=== PATIENT | female | born 1950 | race Caucasian/White ===

== ENCOUNTER → 2016-10-02 | Outpatient (CLI) | payer BC, MEDICARE ==
[2016-10-02 14:53] LABS: Blood Urea Nitrogen 18 mg/dL (7-17); Non-African American GFR(MDRD) >60 (>60 ml/min/1.73 sqM)
== END | disposition home or self-care (01) ==
LOC: LABWHC1 14:18
PROVIDERS: ATTEND Physical Medicine & Rehabilitation
DX: Z01.812 Encounter for preprocedural laboratory examination (principal); M96.1 Postlaminectomy syndrome, not elsewhere classified; M51.26 Other intervertebral disc displacement, lumbar region; M51.16 Intervertebral disc disorders with radiculopathy, lumbar region; M54.5 Low back pain; R20.2 Paresthesia of skin
CPT/HCPCS: 36415; 82565; 84520

== ENCOUNTER → 2016-11-11 | Outpatient (CLI) | payer BC, MEDICARE ==
[2016-11-11 14:33] LABS: Basophils # (A) 0.1 k/uL (0-0.2); Basophils % (A) 2 %; CH 33.3; Eosinophils # (A) 0.1 k/uL (0-0.7); Eosinophils % (A) 2 %; HCT 41.6 % (34.0-46.0); HDW 2.44; HGB 14.4 gm/dL (11.4-16.0); Luc # (Auto) 0.22; Luc % (Auto) 4; Lymphocytes # (A) 2.1 k/uL (1.0-4.8); Lymphocytes % (A) 36 %; MCH 34.1 pg (25.0-35.0); MCHC 34.6 g/dL (31.0-37.0); MCV 98.5 fL (80.0-100.0); Mean Platelet Volume 7.9; Monocytes # (A) 0.4 k/uL (0-1.0); Monocytes % (A) 7 %; Neutrophils # (A) 2.9 k/uL (1.3-7.7); Neutrophils % (A) 50 %; RBC 4.22 m/uL (3.80-5.40); RDW 12.6 % (11.5-15.5); WBC 5.9 k/uL (3.8-10.6); WBC (Perox) 6.07
[2016-11-11 14:42] LABS: Partial Thromboplastin Time 24.8 sec (22.0-30.0); Prothrombin Time 10.2 sec (9.0-12.0)
[2016-11-11 15:25] LABS: ALT 31 U/L (9-52); AST 24 U/L (14-36); Alkaline Phosphatase 65 U/L (38-126); Anion Gap 9 mmol/L; Blood Urea Nitrogen 15 mg/dL (7-17); Calcium 9.1 mg/dL (8.4-10.2); Carbon Dioxide 26 mmol/L (22-30); Chloride 102 mmol/L (98-107); Glucose 86 mg/dL (74-99); Non-African American GFR(MDRD) >60 (>60 ml/min/1.73 sqM); Potassium 4.2 mmol/L (3.5-5.1); Sodium 137 mmol/L (137-145); Total Bilirubin 0.5 mg/dL (0.2-1.3); Total Protein 6.4 g/dL (6.3-8.2)
--- NOTE | 2016-11-11 15:39 | XR ---
EXAMINATION TYPE: XR chest 2V DATE OF EXAM: 11/11/2016 2:54 PM COMPARISON: NONE TECHNIQUE: PA and lateral views submitted. HISTORY: Presurgical FINDINGS: The lungs are clear and there is no pneumothorax, pleural effusion, or focal pneumonia. Hypertrophi c change of the spine noted. Atherosclerotic change aorta. IMPRESSION: 1. No acute process.
== END | disposition home or self-care (01) ==
LOC: LABPAT 13:55
PROVIDERS: ATTEND Orthopaedic Surgery Orthopaedic Surgery of the Spine
DX: Z01.818 Encounter for other preprocedural examination (principal); Z01.812 Encounter for preprocedural laboratory examination
CPT/HCPCS: 71020; 80053; 85025; 85610; 85730; 86850; 86900; 86901; 87070

== ENCOUNTER 2016-11-19 09:00 | Inpatient (IN) | payer BC, MEDICARE ==
[2016-11-17 15:16] VITALS: BMI 25.0
[~2016-11-19 09:00] MED LIST: BACITRACIN 50,000 UNIT, POLYMYXIN B 500,000 UNIT in SODIUM CHLORIDE 0.9% IRRIGATIO 1,00... IRRIGATION ONE; LIDOCAINE 1% 20 ML VIAL (10MG/ML) FOR IV START INTRADERMA PRN; ONDANSETRON 4 MG/2 ML VIAL IVP ONE; ceFAZolin 2 GM in SODIUM CHLORIDE 0.9% 100 ML IVPB ONE
[2016-11-19] MEDS: LACTATED RINGERS 1,000 ML IV SCH (12:17)
[2016-11-19] MEDS ORDERED: MIDAZOLAM 2 MG/2 ML VIAL IV ONE (12:36)
[2016-11-19] MEDS: fentaNYL (PF) 50 MCG/ML 2 ML AMP IV ONE ×2 (13:20→13:52)
[2016-11-19] MEDS ORDERED: NEOSTIGMINE 1 MG/ML 10 ML VIAL ONE (14:53)
[2016-11-19] MEDS ORDERED: PROPOFOL 10 MG/ML 20 ML VIAL IV ONE (14:53)
[2016-11-19] MEDS ORDERED: MIDAZOLAM 2 MG/2 ML VIAL ONE (14:53)
[2016-11-19] MEDS ORDERED: GLYCOPYRROLATE 0.2 MG/ML 2 ML VIAL ONE (14:53)
[2016-11-19] MEDS ORDERED: SUCCINYLCHOLINE CHLORIDE 100 MG/5 ML SYR IV ONE (14:53)
[2016-11-19] MEDS ORDERED: SODIUM CHLORIDE 0.9% IRRIG 1,000 ML BTL IRRIGATION ONE (14:53)
[2016-11-19] MEDS ORDERED: fentaNYL (PF) 50 MCG/ML 2 ML AMP ONE (14:53)
[2016-11-19] MEDS ORDERED: HYDROmorphone (PF) 1 MG/ML ONE (14:53)
[2016-11-19] MEDS ORDERED: ROCURONIUM BROMIDE 10 MG/ML 10 ML VIAL IV ONE (14:53)
[2016-11-19] MEDS ORDERED: LIDOCAINE 1% INJ 10MG/ML (20 ML MDV) ONE (14:53)
[2016-11-19] MEDS ORDERED: PHENYLEPHRINE-0.9% NACL SYG 1 MG/10 ML SYRINGE ONE (14:53)
[2016-11-19] MEDS ORDERED: HEPARIN SODIUM,PORCINE 10,000 UNIT/ML 1 ML VIAL ONE (14:53)
[2016-11-19] MEDS ORDERED: LIDOCAINE 0.5%-EPI 1:200,000 50 ML VIAL SQ ONE ×2 (15:29→15:59)
[2016-11-19] MEDS ORDERED: GELATIN SPONGE,ABSORB (LARGE) 1 EACH SPONGE TOPICAL ONE (15:58)
[2016-11-19] MEDS ORDERED: BUPIVACAINE (PF) 0.25% 30 ML VIAL SQ ONE ×2 (16:00→17:14)
[2016-11-19] MEDS ORDERED: THROMBIN (BOVINE) 5,000 UNIT VIAL MISCELLANE ONE ×2 (16:00)
[2016-11-19] MEDS: BACITRACIN 50,000 UNIT, POLYMYXIN B 500,000 UNIT in SODIUM CHLORIDE 0.9% IRRIGATIO 1,00... IRRIGATION ONE ×2 (16:02→18:31)
--- NOTE | 2016-11-19 16:16 | XR ---
Limited lumbar spine HISTORY: Needle placement Correlation to lumbar MRI 19 April 2015 Single lateral view from an intraoperative exam is submitted. There is a metallic probe superimposed over the fourth lumbar vertebral body, prior fusion has been performed at S1-L4, posterior facet scre ws are also present at L5 and S1. IMPRESSION: Orthopedic localization.
[2016-11-19] MEDS ORDERED: LACTATED RINGERS 1,000 ML IV ONE ×3 (16:32→18:32)
--- NOTE | 2016-11-19 17:33 | XR ---
EXAMINATION TYPE: XR lumbar spine 2 or 3V DATE OF EXAM: 11/19/2016 5:14 PM COMPARISON: November 19, 2016 3:49 PM digital radiograph HISTORY: Same-day surgical fusion procedure TECHNIQUE: 3 views obtained at 5:00 PM FINDINGS: With a numbering schema corresponding lowermost pedicle fixation screws being at the L4 lev el, there are bilateral pedicle fixation screws at the L3 and L4 levels. There is grade 1-2 spinal listhesis of L4 with respect to L5. Orthopedic hardware is intact. No unexpected radiopaque foreign bodies. IMPRESSION: Postoperative digital radiography.
[2016-11-19] MEDS ORDERED: HYDROcodone/APAP 5-325MG 1 EACH TAB PO PRN (17:38)
[2016-11-19] MEDS ORDERED: BENZOCAINE/MENTHOL LOZENG 1 EACH LOZENGE MUCOUS MEM PRN (17:38)
[2016-11-19] MEDS ORDERED: HYDROmorphone PCA 5 MG/25 ML SYRINGE IV PRN (17:38)
--- NOTE | 2016-11-19 17:38 | P.OP ---
Date of Procedure: 11/19/16 Preoperative Diagnosis: Spinal stenosis L3 4, degenerative disc disease L3 4 Low back pain with lower extremity radiculopathy History of prior fusion L4-S1 with retained hardware Postoperative Diagnosis: Same Anesthesia: GETA Pathology: none sent Condition: stable Disposition: PACU Description of Procedure: BRIEF OPERATIVE NOTE Preoperative Diagnosis: Spinal stenosis L3 4, severe, degenerative disc disease L3 4, low back pain with lower extremity radiculopathy, history of prior fusion L4-S1 with retained hardware Postoperative Diagnosis: Same with findings of solid fusion L4-S1 Procedure: Removal of hardware L4 5, deep from the bone Expiration of fusion L4 5 with findings solid fusion Laminectomy and decompression with wide bilateral foraminotomies L3 4 Posterior lateral decompression and fusion L3 4 Transforaminal lumbar interbody fusion for a 360 fusion L3 4 Discectomy for decompression L3 4 Placement of interbody graft Bone marrow aspirate through a separate fascial incision from the right iliac crest bone using a bone marrow aspiration device Local autogenous bone grafting Use of Cell Saver Use of bone graft extenders Use of neuro monitoring Surgeon: Dr. Webb Substance Abuse Nurse: Vern Ventura is present throughout the entire the case persistence during positioning, dissection, exposure, visualization, and all crucial elements of the case as well as closure. Anesthesia: General anesthesia Estimated blood loss: Approximately 150 mL Complications: None apparent Components implanted: K2M Mikado pedicle screw system with 4 screws measuring 6.5 x 45 mm, 2 rods, one Franklin interbody peek cage, one large osteoamp cancellus bone sponge and 10 mL of osteoamp cancellus bone chips to supplemental local autogenous bone graft and bone marrow aspirate Disposition: To recovery room in good stable condition. OPERATIVE INDICATIONS The patient has had long-standing issues in their lower back and lower extremities. She had undergone prior lumbar surgery in the past with fusion at L4 to S1. She had done fairly well with this but was developing increasing pain at her back and into her lower extremities. She is having worsening symptoms of found to have severe stenosis at L3 4 which correlated with a number of her symptoms at her back and her lower extremity radicular symptoms. The patient has been through conservative treatment. She was not having any lasting benefit despite aggressive conservative treatment. We discussed various treatment options including surgery, and the patient wishes to proceed with surgery We discussed the risk, patient's alternatives and benefits of surgery including but not limited to, risk of bleeding risk of infection, risk of need for further surgery, risk of decreased, loss of motion, muscle function , malunion nonunion, hardware failure, nerve damage, paralysis, heart attack, blindness and . OPERATIVE SUMMARY After discussing all the risks, patient alternatives and benefits at length, the patient elected to proceed with surgical intervention, signed informed consent, and presented for their procedure. The patient was seen and examined in the preoperative holding area and the surgical site was marked. The patient was given antibiotics and brought to the operating room. The patient was sedated and intubated by anesthesia in standard fashion. The patient was positioned on to the operating room table in a prone position on the appropriate frame which was well-padded and well molded. We were careful to pad any bony prominences and pressure points. We were careful to maintain the patient's cervical spine and good neutral alignment and position throughout. The patient was prepped and draped in a normal standard fashion. An appropriate timeout and keystone protocol performed. We were able to proceed with the surgery. The local wound area was infiltrated with local anesthetic. An incision was made at the midline longitudinally over the appropriate levels utilizing the prior incision site and extending it. Dissection was taken down subcutaneously to the level of the fascia which was split midline. Dissection was taken over the lamina bilaterally over the facet joints and to the transverse processes. Intraoperative x-ray was taken which showed a marker at the appropriate level at L4. With the appropriate level positively confirmed, we were able to proceed with placement of the pedicle holes and screws. I had removed the facet screws from L4 5 facet joints and to facilitate placement of my knee hardware. I was also removed them appropriately from the bones and there examined and found to be in total. I was able to explore the fusion at L4 5 and L5-S1 it appeared to be solidly fused with no evidence of any motion. The patient had all their twitches back. The wound was copiously irrigated and suctioned dry as had been done periodically throughout the case. Screw holes were established similarly at each level. A sharp awl was used to establish the starting hole. It was palpated and found to have good for qiu and good base. A monitored Steffee probe was used to establish the pedicle hole. It was positioned so there was no stimulation at 12 mA. The hole was palpated and found to have good for qiu and a good base. The hole was tapped with the appropriate sized tap. The transverse process or sacral ala was decorticated with a high-speed bur. I was able to use these holes to place the appropriate size screw and good alignment and good position with good bony purchase. I was able to avoid the transaxial screw at L4. When the screws were inserted there were stimulated, and found to have no stimulation at 20 mA. Through a separate fascial incision toward the right iliac crest I was able place a bone marrow aspirate device into the iliac crest into the cancellus aspect. I was able to withdraw bone marrow aspirate approximately 20 mL which was used to soak the ostial and sponge and cancellus chips for use later in the case. I was able to turn my attention to the decompression at L3 4. decompression was performed with a combination of rongeurs, curettes, Kerrison rongeurs and a ball -tip feeler. All of the bone that was removed was stripped and morcellized for use as autogenous bone graft later in the case. There is evidence of severe central and bilateral foraminal stenosis which was removed with a laminectomy and decompression and foraminotomy. I was able to obtain good central decompression as well as wide bilateral foraminal decompression. There is no evidence of dural tear or leak. Good hemostasis was maintained. The wound was irrigated and suctioned dry. I performed a complete facetectomy at the appropriate level on the most symptomatic side. All bone that was removed was saved for local autogenous bone grafting. I was able to gain access to the disc space at the appropriate level/levels. Good hemostasis was maintained. I was able to protect the neurologic structures. A discectomy was performed. This provided further decompression. I was also able to perform complete discectomy and endplate preparation with a combination of pituitary curettes, rasps and scrapers. With the interbody space prepared, I was able to do appropriate sizing. The appropriate size cage was chosen. The wound was irrigated and suctioned dry. The interbody space was packed with local autogenous bone graft and a small portion of bone graft substitute, as was the cage itself. I placed a peek cage at the interbody space of L3 4 appropriately. Protecting the soft tissue structures, I was able place the cage in good alignment and good position with good fit and fill. There is no evidence of extrusion of the graft material nor protrusion of the interbody device. The wound was irrigated and suctioned dry. With the hardware intact at L3 4, intraoperative x-ray was again taken which showed good alignment and position of the hardware at the appropriate levels at L3 4. We were then able to measure, contour and place the rods and appropriate hardware bilaterally. I was able to place capcrews, tighten them down, and shear them off appropriately. The sheared portion was counted and accounted for. With this intact I was able to place the local autogenous bone graft with additional bone graft enhancer as necessary into the posterior lateral gutters bilaterally. With the bone graft intact, a stable construct, and good decompression at the appropriate levels, we were able to proceed with closure. Good hemostasis was maintained. There is no evidence of dural tear or leak. The fascia was closed for a watertight closure. The subcutaneous tissue was closed over a superficial drain. The subcuticular tissue was closed with absorbable suture. The wound was cleaned and dried and dressed with the appropriate dressing. The drapes were broken down. The patient was gently rolled back onto their hospital bed being careful to maintain their cervical spine and good neutral alignment and position. They were woken up by anesthesia , extubated, and brought to the recovery room in good stable condition. The patient will be admitted to the hospital for appropriate postoperative care , medical management and monitoring. We will continue to follow them closely about the postoperative course.
[2016-11-19] MEDS ORDERED: ZOLPIDEM 10 MG TAB PO PRN (17:41)
[2016-11-19] MEDS ORDERED: HYDROcodone/APAP 10-325MG 1 EACH TAB PO PRN (17:41)
[2016-11-19] MEDS: HYDROmorphone 1 MG/ML 1 ML SYRINGE IVP PRN ×6 (17:42→22:58)
[2016-11-19] MEDS ORDERED: HYDROmorphone 1 MG/ML 1 ML SYRINGE IVP PRN (17:50)
[2016-11-19] MEDS ORDERED: fentaNYL (PF) 50 MCG/ML 2 ML AMP IV ONE (18:15)
[2016-11-19] MEDS: HYDROmorphone PCA 5 MG/25 ML SYRINGE IV PRN (18:46)
[2016-11-19] MEDS: HYDROcodone/APAP 5-325MG 1 EACH TAB PO PRN ×2 (19:49→22:58)
[2016-11-19] MEDS: SODIUM CHLORIDE 0.9% 1,000 ML IV SCH (23:48)
[2016-11-19] MEDS: ceFAZolin 2 GM in SODIUM CHLORIDE 0.9% 100 ML IVPB SCH (23:51)
[2016-11-20] MEDS: HYDROcodone/APAP 5-325MG 1 EACH TAB PO PRN ×3 (02:35→18:25)
[2016-11-20] MEDS: HYDROmorphone 1 MG/ML 1 ML SYRINGE IVP PRN ×6 (03:22→23:58)
[2016-11-20 09:09] LABS: Anion Gap 9 mmol/L; Blood Urea Nitrogen 9 mg/dL (7-17); Calcium 8.9 mg/dL (8.4-10.2); Carbon Dioxide 26 mmol/L (22-30); Chloride 103 mmol/L (98-107); Glucose 122 mg/dL (74-99); Non-African American GFR(MDRD) >60 (>60 ml/min/1.73 sqM); Potassium 4.2 mmol/L (3.5-5.1); Sodium 138 mmol/L (137-145)
[2016-11-20] MEDS: ceFAZolin 2 GM in SODIUM CHLORIDE 0.9% 100 ML IVPB SCH (09:15)
[2016-11-20] MEDS: HYDROmorphone PCA 5 MG/25 ML SYRINGE IV PRN ×2 (09:15→21:23)
[2016-11-20 09:16] LABS: Basophils # (A) 0.1 k/uL (0-0.2); Basophils % (A) 1 %; CH 33.7; CHCM 32.9; Eosinophils % (A) 0 %; HCT 37.7 % (34.0-46.0); HGB 12.1 gm/dL (11.4-16.0); Luc # (Auto) 0.11; Luc % (Auto) 1; Lymphocytes # (A) 0.7 k/uL (1.0-4.8); Lymphocytes % (A) 6 %; MCH 33.1 pg (25.0-35.0); MCHC 32.1 g/dL (31.0-37.0); MCV 103.1 fL (80.0-100.0); Macrocytosis Slight; Mean Platelet Volume 8.9; Monocytes # (A) 0.5 k/uL (0-1.0); Monocytes % (A) 5 %; Neutrophils # (A) 9.3 k/uL (1.3-7.7); Neutrophils % (A) 87 %; RBC 3.65 m/uL (3.80-5.40); RDW 13.1 % (11.5-15.5); WBC 10.7 k/uL (3.8-10.6); WBC (Perox) 10.84
[2016-11-20] MEDS: LISINOPRIL 2.5 MG TAB PO SCH (10:28)
[2016-11-20] MEDS: TRIAMTERENE-HCTZ 37.5-25MG 1 EACH TAB PO SCH (10:28)
[2016-11-20] MEDS: LACTATED RINGERS 1,000 ML IV SCH (10:33)
--- NOTE | 2016-11-20 11:31 | P.PN ---
Progress Note - Text Postoperative day #1 Patient is seen and examined today at bedside. The patient has some pain around the surgical site as expected. Pain is being controlled with medication. She is up in a chair and she says she feels good. She has troubles with changing positions as expected. Physical Exam Afebrile with stable vital signs Abdomen is soft nontender. Chest has good excursion deep and space expiration The incision site is clean dry and intact. No erythema there is no purulence. Her dressing is intact there is no evidence of any infection at her back. Extremities have not had neurologic change from prior to surgery. She has sustained dorsal flexion plantar flexion and extensor hallucis longus intact Calves and thighs were soft nontender without evidence of DVT. Assessment/Plan Postoperative day #1 status post decompression and fusion L3 4 with extension of her prior fusion from L4-S1 for her severe spinal stenosis L3 4. Patient is progressing as expected from the surgery. She seems to be making appropriate progress and we will increase her mobility. She will need her Vergraa catheter disc continued today. We will continue to increase the patient's mobilization with therapy. We will continue pain control with oral or IV medications. We'll continue to follow patient closely.
--- NOTE | 2016-11-20 14:45 | P.CONS ---
History of Present Illness - Reason for Consult Consult date: 11/20/16 Medical management Requesting physician: Kaleigh Webb - Chief Complaint Low back pain with lower extremity radiculopathy - History of Present Illness Patient is a 66-year-old female, patient of Dr. Wilson in the outpatient setting, with past medical history detailed below significant for spinal stenosis, degenerative disc disease, low back pain with lower extremity radicular Pappy, and history of prior L4-S1 fusion with retained hardware. Patient presented to the hospital for elective decompression and fusion of L3 4 with extension of prior fusion from L4-S1 for her severe spinal stenosis of L3 4. Patient is evaluated on the surgical floor she is postop day #1. Patient is sitting up in a chair. Patient is feeling well. Denies chills, fevers, nausea, vomiting, shortness of breath, chest pain, or abdominal pain. Incisional pain controlled with current pain regimen. Patient reports slight numbness to her bilateral feet which is chronic per patient Patient has a Vergara catheter with adequate urine output. Patient is tolerating a regular diet. Afebrile. WBC 10.7. Hemoglobin 12.1. Past Medical History Past Medical History: Hypertension, Osteoarthritis (OA) History of Any Multi-Drug Resistant Organisms: None Reported Past Surgical History: Back Surgery, Hysterectomy Past Anesthesia/Blood Transfusion Reactions: No Reported Reaction Past Psychological History: No Psychological Hx Reported Smoking Status: Former smoker Past Alcohol Use History: Daily Additional Past Alcohol Use History / Comment(s): quit smoking 20 yrs. ago, smoked for 15 yrs., glass wine per day Past Drug Use History: None Reported - Past Family History Father Family Medical History: Cancer Medications and Allergies Home Medications Medication Instructions Recorded Confirmed Type HYDROcodone/APAP 10-325MG [[place] 1 tab PO Q6H PRN 11/17/16 11/19/16 History 10-325] Lisinopril [Zestril] 2.5 mg PO DAILY 11/17/16 11/19/16 History Multivitamin [Multivitamins Adult 1 tab PO DAILY 11/17/16 11/19/16 History Gummies] Triamterene-Hctz 37.5-25Mg 1 tab PO DAILY 11/17/16 11/19/16 History [Maxzide 37.5-25] Zolpidem [Ambien] 10 mg PO HS PRN 11/17/16 11/19/16 History Allergies Allergy/AdvReac Type Severity Reaction Status Date / Time codeine AdvReac Nausea & Verified 11/19/16 12:10 Vomiting Physical Exam Vitals: Vital Signs Temp Pulse Resp BP Pulse Ox 11/20/16 08:14 97.1 F L 68 16 103/55 97 11/20/16 04:00 97.3 F L 54 L 18 118/55 92 L 11/19/16 20:30 75 118/75 11/19/16 20:15 61 127/60 11/19/16 20:00 59 L 153/90 11/19/16 19:45 61 146/79 11/19/16 19:30 57 L 139/64 11/19/16 19:25 97 F L 82 16 152/82 100 11/19/16 19:15 58 L 149/61 11/19/16 19:00 53 L 151/70 11/19/16 18:45 143/91 11/19/16 18:21 63 16 157/71 100 11/19/16 18:16 60 16 170/71 100 11/19/16 18:00 63 14 170/74 100 11/19/16 17:45 67 16 161/73 95 11/19/16 17:35 97.6 F 80 16 153/69 96 Intake and Output 11/19/16 11/20/16 11/20/16 22:59 06:59 14:59 Intake Total 2101 625 360 Output Total 225 1000 1500 Balance 1876 375 1140 Intake: IV 2101 Intake, IV Titration 375 Amount Sodium Chloride 0.9% 1, 375 000 ml @ 75 mls/hr IV . [id number] [facility] Rx#:[id number] Oral 250 360 Output: Urine 125 1000 1500 Uretheral (Vergara) 1500 Estimated Blood Loss 100 Other: Voiding Method Indwelling Catheter Indwelling Catheter Weight 62.142 kg Patient Weight 11/21/16 06:59 Weight 62.142 kg GENERAL: Pt awake and alert, well-appearing, well-nourished, and in no acute distress. HEAD: Atraumatic, normocephalic. EYES: Pupils equal and round. Sclera anicteric, conjunctiva are normal. ENT: Moist mucous membranes. NECK:Normal range of motion, supple without lymphadenopathy or JVD. Thyroid midline, small and firm without palpable masses. LUNGS: Breath sounds clear to auscultation bilaterally. No wheezes, rales, or rhonchi. HEART: Heart S1, S2, no S3 or S4. Regular rate and rhythm. No murmurs, rubs or gallops. ABDOMEN: Soft, nontender, nondistended, normoactive bowel sounds. No guarding, no rebound. No masses or organomegaly appreciated. EXTREMITIES: Palpable peripheral pulses. No edema. No calf tenderness. NEUROLOGICAL: Pt oriented x 3. No focal deficits noted. Strength and sensation grossly intact. PSYCH: Normal mood, normal affect. SKIN: Warm, dry. Surgical dressing dry and intact. Results CBC & Chem 7: 11/20/16 08:03 11/20/16 08:06 Labs: Abnormal Lab Results - Last 24 Hours (Table) 11/20/16 11/20/16 Range/Units 08:03 08:06 WBC 10.7 H (3.8-10.6) k/uL RBC 3.65 L (3.80-5.40) m/uL MCV 103.1 H (80.0-100.0) fL Neutrophils # 9.3 H (1.3-7.7) k/uL Lymphocytes # 0.7 L (1.0-4.8) k/uL Glucose 122 H (74-99) mg/dL Assessment and Plan Plan: Impression and plan: 1. Status post decompression and fusion L3 4 with extension of prior fusion from L4-S1 for severe spinal stenosis L3 4. 2. Leukocytosis, suspect reactive. 3. History of low back pain with lower extremity radiculopathy. 4. Hypertension. 5. Osteoarthritis. 6. History of nicotine dependence. Continue to monitor patient. Continue surgical management by surgical team. Home medications have been reviewed and resumed. Continue GI and DVT prophylaxis. Continue supportive treatment and pain management. Continue incentive spirometer 10 times an hour while awake. Repeat CBC and BMP in a.m. The above impression and plan have been discussed and directed by Dr. Basilio. Alyse MENDOZA acting as scribe for Dr. Basilio.
[2016-11-20] MEDS: DIAZEPAM 5 MG TAB PO PRN (15:50)
[2016-11-20] MEDS: MULTIVITAMINS, THERA 1 EACH TAB PO SCH (15:53)
[2016-11-20] MEDS ORDERED: CALCIUM CARBONATE 500 MG CHEWABLE PO PRN (17:45)
[2016-11-20] MEDS ORDERED: HEPARIN SODIUM,PORCINE 5,000 UNIT/ML 1 ML VIAL SQ SCH (21:00)
[2016-11-21] MEDS: SODIUM CHLORIDE 0.9% 1,000 ML IV SCH ×2 (00:21→03:59)
[2016-11-21 01:53] VITALS: RESP 16
[2016-11-21] MEDS: ONDANSETRON 4 MG/2 ML VIAL IVP PRN ×2 (04:08→11:49)
[2016-11-21] MEDS ORDERED: ONDANSETRON 4 MG/2 ML VIAL IVP STA (06:14)
[2016-11-21] MEDS: oxyCODONE-APAP 5-325MG 1 EACH TAB PO PRN ×5 (06:27→22:54)
[2016-11-21 07:19] LABS: Basophils % (A) 0 %; CH 33.4; CHCM 32.9; Eosinophils % (A) 0 %; HCT 36.2 % (34.0-46.0); HDW 2.25; Luc # (Auto) 0.13; Luc % (Auto) 1; Lymphocytes # (A) 0.7 k/uL (1.0-4.8); Lymphocytes % (A) 7 %; MCH 33.7 pg (25.0-35.0); Macrocytosis Slight; Mean Platelet Volume 7.9; Monocytes # (A) 0.6 k/uL (0-1.0); Monocytes % (A) 6 %; Neutrophils # (A) 8.4 k/uL (1.3-7.7); Neutrophils % (A) 85 %; RBC 3.55 m/uL (3.80-5.40); WBC 9.8 k/uL (3.8-10.6); WBC (Perox) 10.27
[2016-11-21 07:31] LABS: Anion Gap 7 mmol/L; Blood Urea Nitrogen 11 mg/dL (7-17); Calcium 9.7 mg/dL (8.4-10.2); Carbon Dioxide 28 mmol/L (22-30); Chloride 101 mmol/L (98-107); Glucose 123 mg/dL (74-99); Non-African American GFR(MDRD) >60 (>60 ml/min/1.73 sqM); Potassium 3.8 mmol/L (3.5-5.1); Sodium 136 mmol/L (137-145)
[2016-11-21] MEDS: TRIAMTERENE-HCTZ 37.5-25MG 1 EACH TAB PO SCH (07:55)
[2016-11-21] MEDS: FAMOTIDINE 20 MG TAB PO SCH (07:55)
[2016-11-21] MEDS: LISINOPRIL 2.5 MG TAB PO SCH (07:55)
[2016-11-21] MEDS: MULTIVITAMINS, THERA 1 EACH TAB PO SCH (07:55)
--- NOTE | 2016-11-21 08:44 | P.PN ---
Progress Note - Text Orthopedic Spine Patient is a pleasant 66-year-old female who is seen and examined at the bedside following removal of hardware L4-5 with posterior lateral decompression and fusion at L3-4 Thursday. Patient states they are doing ok postsurgically. She is not currently experiencing any significant pain in the bilateral lower extremities. She has continued to have significant pain at the surgical site of the lumbar spine. She states her back pain is exacerbated by trying to sit and move. When she is able to get upright she has been able to do some ambulation. Her pain is being controlled Percocet. She is no longer using a [employer]. Currently does not complain of nausea, vomiting, fever, or chills. Patient is eating and voiding freely without difficulty. Physical Exam Lumbar Fusion: Status post surgical day number 2 Patient is awake, alert, and oriented 3 Vital signs stable Good chest excursion with deep inspiration and expiration Abdomen soft nontender Dorsiflexion, plantarflexion, and extensor hallucis longus positive sustained bilaterally No signs or symptoms of DVT; no calf pain; pneumatic cuffs intact bilateral lower extremities Dressing is clean, dry, and intact; no erythema, purulence, or signs of infection Hemovac drain well secure Neurovascularly intact bilaterally lower extremities Assessment: Removal of hardware L4-5 Posterior lateral decompression and fusion L3-4 Transforaminal lumbar interbody fusion L3-4 Low back pain Arthrodesis status Plan: 1. Ambulate as tolerated; work with Physical Therapy to increase mobilization 2. Continue pain control with IV and oral medications 3. Dressing changed to Telfa and Tegaderm; Hemovac drain discontinued 4. Medical management can continue to manage patient for patient's other medical issues 5. We will continue to follow the patient closely; if the patient continues to improve, we'll plan for discharge home tomorrow, 11/22/2016 6. Patient can follow-up with Vern Gary PA-C or Dr. Marcial Webb at [facility] in 2-3 weeks following discharge
[2016-11-21] MEDS: LACTATED RINGERS 1,000 ML IV SCH (09:12)
--- NOTE | 2016-11-21 13:18 | P.WNDSOAP ---
Subjective Patient is a 66-year-old female, patient of Dr. Wilson and I in the outpatient setting, with past medical history detailed below significant for spinal stenosis, degenerative disc disease, low back pain with lower extremity radicular Pappy, and history of prior L4-S1 fusion with retained hardware. Patient presented to the hospital for elective decompression and fusion of L3 4 with extension of prior fusion from L4-S1 for her severe spinal stenosis of L3 4. Patient is postop day 2, she is complaining of some nausea. She has not had a bowel movement today. Her ARBORIST pump is now discontinued favor Percocet. Objective - Vital Signs Vital signs: Vital Signs Temp 98.9 F 11/21/16 07:55 Pulse 90 11/21/16 07:55 Resp 16 11/21/16 07:55 BP 159/81 11/21/16 07:55 Pulse Ox 96 11/21/16 07:55 Intake & Output 11/20/16 11/21/16 11/21/16 18:59 06:59 18:59 Intake Total 360 250 Output Total 1800 Balance -1440 250 Weight 62.142 kg Intake: Oral 360 250 Output: Urine 1800 Uretheral (Vergara) 1500 Other: Voiding Method Indwelling Catheter Toilet # Voids 2 1 - Exam GENERAL: Pt awake and alert, well-appearing, well-nourished, and in no acute distress. NECK:Normal range of motion, supple without lymphadenopathy or JVD. Thyroid midline, small and firm without palpable masses. LUNGS: Breath sounds clear to auscultation bilaterally. No wheezes, rales, or rhonchi. HEART: Heart S1, S2, no S3 or S4. Regular rate and rhythm. No murmurs, rubs or gallops. ABDOMEN: Soft, nontender, nondistended, normoactive bowel sounds. No guarding, no rebound. No masses or organomegaly appreciated. EXTREMITIES: Palpable peripheral pulses. No edema. No calf tenderness. NEUROLOGICAL: Pt oriented x 3. No focal deficits noted. Strength and sensation grossly intact. PSYCH: Normal mood, normal affect. SKIN: Warm, dry. Surgical dressing dry and intact. - Labs CBC & Chem 7: 11/21/16 06:42 11/21/16 06:42 Labs: Abnormal Lab Results - Last 24 Hours (Table) 03/17/17 03/17/17 Range/Units 06:42 06:42 RBC 3.55 L (3.80-5.40) m/uL MCV 102.0 H (80.0-100.0) fL Neutrophils # 8.4 H (1.3-7.7) k/uL Lymphocytes # 0.7 L (1.0-4.8) k/uL Sodium 136 L (137-145) mmol/L Glucose 123 H (74-99) mg/dL Assessment and Plan Plan: Impression and plan: 1. Status post decompression and fusion L3 4 with extension of prior fusion from L4-S1 for severe spinal stenosis L3 4: Her pain is currently being controlled with Percocet. 2. Leukocytosis, suspect reactive.: Resolved 3. History of low back pain with lower extremity radiculopathy.: Stable 4. Hypertension: Elevated, most likely from pain, will monitor, continued Dyazide and lisinopril 5. Osteoarthritis: Controlled 6. History of nicotine dependence. 7. GI prophylaxis: To continue Pepcid. 8. DVT prophylaxis: She'll continue to ambulate frequently early, SCDs are available. We will add Jobst 9 constipation: We'll add Colace We will increase her lisinopril to 5 mg daily. We'll add Colace. She'll be reevaluated next 24 hours as needed
[2016-11-21] MEDS ORDERED: LISINOPRIL 5 MG TAB PO SCH (13:30)
[2016-11-21] MEDS ORDERED: LISINOPRIL 2.5 MG TAB PO ONE (13:30)
[2016-11-21] MEDS: DOCUSATE 100 MG CAP PO SCH ×2 (14:14→21:24)
[2016-11-21] MEDS: DIAZEPAM 5 MG TAB PO PRN (14:14)
[2016-11-22] MEDS: oxyCODONE-APAP 5-325MG 1 EACH TAB PO PRN ×3 (04:21→12:14)
[2016-11-22] MEDS: ONDANSETRON 4 MG/2 ML VIAL IVP PRN (04:28)
[2016-11-22 06:57] LABS: Basophils % (A) 0 %; CHCM 33.7; Eosinophils # (A) 0.1 k/uL (0-0.7); Eosinophils % (A) 1 %; HCT 34.9 % (34.0-46.0); HDW 2.31; HGB 11.5 gm/dL (11.4-16.0); Luc # (Auto) 0.18; Luc % (Auto) 2; Lymphocytes # (A) 0.8 k/uL (1.0-4.8); Lymphocytes % (A) 9 %; MCH 33.4 pg (25.0-35.0); MCHC 32.9 g/dL (31.0-37.0); MCV 101.3 fL (80.0-100.0); Macrocytosis Slight; Mean Platelet Volume 8.5; Monocytes # (A) 0.6 k/uL (0-1.0); Monocytes % (A) 7 %; Neutrophils # (A) 7.3 k/uL (1.3-7.7); Neutrophils % (A) 82 %; RBC 3.45 m/uL (3.80-5.40); RDW 12.9 % (11.5-15.5)
[2016-11-22] MEDS: DOCUSATE 100 MG CAP PO SCH (08:04)
[2016-11-22] MEDS: TRIAMTERENE-HCTZ 37.5-25MG 1 EACH TAB PO SCH (08:04)
[2016-11-22] MEDS: MULTIVITAMINS, THERA 1 EACH TAB PO SCH (08:04)
[2016-11-22] MEDS: FAMOTIDINE 20 MG TAB PO SCH (08:04)
[2016-11-22] MEDS ORDERED: LISINOPRIL 5 MG TAB PO SCH (09:00)
--- NOTE | 2016-11-22 11:48 | P.DS ---
Providers Date of admission: 11/19/16 11:39 Attending physician: Kaleigh Webb Consults: 11/19/16 17:38 Consult Physician Routine Consulting Provider: Sylvester Wilson Jr Consult Reason/Comments: Medical management Do you want consulting provider notified?: Yes Primary care physician: Stated None Hospital Course: The patient presented on the day of admission as per his operative note. She had significant adjacent level degeneration at L3 4 with stenosis and listhesis. She had. History of prior fusion at L4 to S1 and after failing conservative treatment she underwent decompression fusion L3 4 as per her operative note. Physical Exam The incision site is clean dry and intact. There is no erythema no drainage. There is no purulence no evidence of infection. The incision in her back looks to be healing well. She has a skin changes due to her excessive heat pack use which are stable. Abdomen soft and nontender. Chest has good excursion with deep inspiration and expiration. The patient has active and passive range of motion intact at the upper and lower extremities. There is no acute change in neurologic status. She is able to sit up and walk in her room independently with a walker. She has good strength lower extremity. Hospital Course Postoperative day #3 status post decompression and fusion L3 4 with history of prior fusion L4 to S1 for her spinal stenosis and degenerative disease. She is verbalizing nicely and is eager to try to go home today. The patient has been making good progress postoperatively. They have completed the prophylactic antibiotics without any signs or symptoms of infection. The patient has been able to advance their diet, and is tolerating diet adequately. The pain was initially controlled with IV medications and is now controlled appropriately with oral medications. The patient has been able to increase their mobilization. The patient has progressed appropriately. I think they are in good stable condition for discharge today. They will be sent home with appropriate prescriptions. I answered their questions to the best of my ability in a language that they can understand and they are agreeable with the plan. They will follow up as directed in approximately 2 weeks or sooner if she is having any problems. Patient Condition at Discharge: Good Plan - Discharge Summary New Discharge Prescriptions: oxyCODONE HCL/ACETAMINOPHEN [Percocet 5-325 mg] 1 tab PO Q6HR PRN #90 tab PRN Reason: Pain Discharge Medication List HYDROcodone/APAP 10-325MG [[place] 10-325] 1 tab PO Q6H PRN 11/17/16 [History] Lisinopril [Zestril] 2.5 mg PO DAILY 11/17/16 [History] Multivitamin [Multivitamins Adult Gummies] 1 tab PO DAILY 11/17/16 [History] Triamterene-Hctz 37.5-25Mg [Maxzide 37.5-25] 1 tab PO DAILY 11/17/16 [History] Zolpidem [Ambien] 10 mg PO HS PRN 11/17/16 [History] oxyCODONE HCL/ACETAMINOPHEN [Percocet 5-325 mg] 1 tab PO Q6HR PRN #90 tab [Rx] Follow up Appointment(s)/Referral(s): Vern Gary PAC [PHYSICIAN [employer]] - 2 Weeks (Patient may follow-up with Vern Gary PA-C or Dr. Marcial Webb at [facility] in 2-3 weeks following discharge. ) Activity/Diet/Wound Care/Special Instructions: 1. Patient may shower Tegaderm dressing intact. 2. Patient may remove Tegaderm dressing in 3 days and shower without a dressing at that time. 3. Patient should keep Steri-Strips intact and allow them to fall off naturally. 4. Patient should refrain from driving until at least after their first follow- up appointment in the office. 5. Patient should avoid excessive bending, twisting, and lifting; no lifting greater than 10 pounds 6. Do not soak in tub Discharge Disposition: HOME SELF-CARE
[2016-11-22 12:02] VITALS: BP 139/65; PULSE 88; TEMP 97.4
== END 2016-11-22 12:31 | disposition home or self-care (01) | DRG 460 ==
LOC: 2ORMAIN 11:39 → 3SUR 17:22
PROVIDERS: ADMIT Orthopaedic Surgery Orthopaedic Surgery of the Spine; ATTEND Orthopaedic Surgery Orthopaedic Surgery of the Spine
PROC: 0ST20ZZ Resection of Lumbar Vertebral Disc, Open Approach (ICD-10-PCS; 2016-11-19)
PROC: 0SP30AZ Removal of Interbody Fusion Device from Lumbosacral Joint, Open Approach (ICD-10-PCS; 2016-11-19)
PROC: 07DR3ZZ Extraction of Iliac Bone Marrow, Percutaneous Approach (ICD-10-PCS; 2016-11-19)
PROC: 0SG00A1 (ICD-10-PCS; principal; 2016-11-19 14:30)
DX: M48.06 Spinal stenosis, lumbar region (principal); I10 Essential (primary) hypertension; M51.16 Intervertebral disc disorders with radiculopathy, lumbar region; M19.90 Unspecified osteoarthritis, unspecified site; M47.816 Spondylosis without myelopathy or radiculopathy, lumbar region; M43.16 Spondylolisthesis, lumbar region; E78.5 Hyperlipidemia, unspecified; Z87.891 Personal history of nicotine dependence; Z98.1 Arthrodesis status; Z79.899 Other long term (current) drug therapy; Z88.5 Allergy status to narcotic agent; Z82.49 Family history of ischemic heart disease and other diseases of the circulatory system
CPT/HCPCS: 72020; 72100; 80048; 85025; 86850; 86891; 86900; 86901

== ENCOUNTER → 2017-11-06 | Outpatient (CLI) | payer BC, MEDICARE ==
[2017-11-06 17:45] LABS: Basophils # (A) 0.1 k/uL (0-0.2); Basophils % (A) 1 %; Eosinophils # (A) 0.1 k/uL (0-0.7); Eosinophils % (A) 2 %; HCT 46.8 % (34.0-46.0); HGB 15.1 gm/dL (11.4-16.0); Lymphocytes # (A) 2.5 k/uL (1.0-4.8); Lymphocytes % (A) 28 %; MCH 32.2 pg (25.0-35.0); MCHC 32.4 g/dL (31.0-37.0); MCV 99.6 fL (80.0-100.0); Mean Platelet Volume 7.6; Monocytes # (A) 0.7 k/uL (0-1.0); Monocytes % (A) 8 %; Neutrophils # (A) 5.4 k/uL (1.3-7.7); Neutrophils % (A) 60 %; Platelet Count 298 k/uL (150-450); RBC 4.69 m/uL (3.80-5.40); RDW 12.7 % (11.5-15.5)
[2017-11-06 17:54] LABS: ALT 63 U/L (9-52); AST 53 U/L (14-36); Albumin 4.1 g/dL (3.5-5.0); Alkaline Phosphatase 59 U/L (38-126); Anion Gap 9 mmol/L; Blood Urea Nitrogen 14 mg/dL (7-17); Calcium 10.2 mg/dL (8.4-10.2); Carbon Dioxide 31 mmol/L (22-30); Chloride 99 mmol/L (98-107); Glucose 98 mg/dL (74-99); Potassium 4.3 mmol/L (3.5-5.1); Sodium 139 mmol/L (137-145); Total Bilirubin 0.4 mg/dL (0.2-1.3); Total Protein 6.9 g/dL (6.3-8.2)
--- NOTE | 2017-11-09 11:59 | MM ---
Reason for exam: screening (asymptomatic). Last mammogram was performed 1 year and 4 months ago. History: Patient is postmenopausal. Benign excisional biopsy of the left breast, 1979. Benign excisional biopsy of the right breast, 1979. Took estrogen for 10 years beginning at age 44. Physical Findings: A clinical breast exam by your physician is recommended on an annual basis and results should be correlated with mammographic findings. MG 3D Screening Mammo W/Cad Bilateral CC and MLO view(s) were taken. Prior study comparison: July 04, 2016, bilateral MG 3d screening mammo w/cad. June 29, 2015, right breast MG 3d work up w/cad RT. The breast tissue is heterogeneously dense. This may lower the sensitivity of mammography. Finding: There are typically benign diffuse/scattered calcifications in both breasts. There is a new 5mm mass in the central inner left breast at middle depth, 7cm from the nipple. Other bilateral masses and right upper inner quadrant focal asymmetry are stable from priors. No suspicious abnormality in the right breast. ASSESSMENT: Incomplete: need additional imaging evaluation, BI-RAD 0 RECOMMENDATION: Special view mammogram of the left breast. If lesion persists on supplemental views, image directed ultrasound is recommended. [facility] will attempt to contact patient to return for supplemental views and ultrasound if indicated.
== END | disposition home or self-care (01) ==
LOC: RADMAMWWP 16:30
PROVIDERS: ATTEND Family Medicine
DX: Z12.31 Encounter for screening mammogram for malignant neoplasm of breast (principal); Z00.00 Encounter for general adult medical examination without abnormal findings; I10 Essential (primary) hypertension
CPT/HCPCS: 36415; 77063; 77067; 80053; 84443; 85025; 86803

== ENCOUNTER → 2017-11-11 | Outpatient (CLI) | payer BC, MEDICARE ==
--- NOTE | 2017-11-12 08:29 | MM ---
Reason for exam: additional evaluation requested from abnormal screening. Last mammogram was performed less than 1 month ago. History: Patient is postmenopausal. Benign excisional biopsy of the left breast, 1979. Benign excisional biopsy of the right breast, 1979. Took estrogen for 10 years beginning at age 44. Physical Findings: Nurse did not find any significant physical abnormalities on exam. MG 3D Work Up W/Cad LT Spot compression CC, spot compression MLO, and ML view(s) were taken of the left breast. Prior study comparison: November 06, 2017, bilateral MG 3d screening mammo w/cad. July 04, 2016, bilateral MG 3d screening mammo w/cad. Finding: There is a 4 mm equal density (isodense), circumscribed round mass in the lower inner quadrant, middle position of the left breast. These results were verbally communicated with the patient and result sheet given to the patient on 11/11/17. ASSESSMENT: Incomplete: need additional imaging evaluation, BI-RAD 0 RECOMMENDATION: Ultrasound of the left breast.
--- NOTE | 2017-11-12 08:30 | USB ---
Reason for exam: additional evaluation requested from abnormal screening. History: Patient is postmenopausal. Benign excisional biopsy of the left breast, 1979. Benign excisional biopsy of the right breast, 1979. Took estrogen for 10 years beginning at age 44. US Breast Workup Limited LT Left breast ultrasound demonstrates a 3 x 2 x 3mm oval lesion too small to characterize at 8 o'clock and a 5 x 3 x 3mm oval, cystic lesion at 9 o'clock. These results were verbally communicated with the patient and result sheet given to the patient on 11/11/17. ASSESSMENT: Benign, BI-RAD 2 RECOMMENDATION: Return to routine screening mammogram schedule for both breasts.
== END | disposition home or self-care (01) ==
LOC: RADMAMWWP 12:50
PROVIDERS: ATTEND Family Medicine
DX: R92.8 Other abnormal and inconclusive findings on diagnostic imaging of breast (principal)
CPT/HCPCS: 77065; 76642; G0279

== ENCOUNTER → 2021-02-21 | Outpatient (CLI) | payer MEDICARE ==
--- NOTE | 2021-02-22 11:45 | MM ---
Reason for exam: screening (asymptomatic). Last mammogram was performed 3 years and 3 months ago. History: Patient is postmenopausal. Benign excisional biopsy of the left breast, 1979. Benign excisional biopsy of the right breast, 1979. Took hormonal contraceptives for 1 year. Took estrogen for 10 years beginning at age 44. Physical Findings: A clinical breast exam by your physician is recommended on an annual basis and results should be correlated with mammographic findings. MG Screening Mammo w CAD Bilateral CC and MLO view(s) were taken. Prior study comparison: November 06, 2017, bilateral MG 3d screening mammo w/cad. July 04, 2016, bilateral MG 3d screening mammo w/cad. No significant changes when compared with prior studies. ASSESSMENT: Benign, BI-RAD 2 RECOMMENDATION: Routine screening mammogram of both breasts in 1 year.
== END | disposition home or self-care (01) ==
LOC: RADMAMWWP 10:06
PROVIDERS: ATTEND Family Medicine
DX: Z12.31 Encounter for screening mammogram for malignant neoplasm of breast (principal); Z78.0 Asymptomatic menopausal state
CPT/HCPCS: 77067

== ENCOUNTER → 2022-04-23 | Outpatient (CLI) | payer MEDICARE ==
--- NOTE | 2022-04-23 19:00 | BD ---
EXAMINATION TYPE: Axial Bone Density DATE OF EXAM: 04/23/2022 CLINICAL HISTORY: 72 years year old Female. ICD-10 CODE: Z78.0 POST MENOPAUSAL WITHOUT HRT Height: 60 IN Weight: 142 LBS FRAX RISK QUESTIONS: History of Fracture in Adulthood: RT WRIST FX AGE 39 Secondary Osteoporosis: 3. Menopause before 45: TOTAL HYST AGE 39 RISK FACTORS HISTORY OF: History of Wrist Fracture: RT AGE 39 Surgery to Spine: AGE 49 L SPINE Active: YES Diet low in dairy products/other sources of calcium: YES Postmenopausal woman: TOTAL HYST AGE 39 Take estrogen and/or progesterone medications: NOT NOW How lon YEARS MEDICATIONS: Additional Medications: MAXIDE, LISINOPRIL EXAM MEASUREMENTS: Bone mineral densitometry was performed using the [employer] System. L SPINE SURGERY Bone mineral density about the R hip (g/cm2): 0.787 Bone mineral density about the L hip (g/cm2): 0.828 T Score values are as follows: -----R Neck: -1.8 -----L Neck: -1.5 -----R Total: -1.4 -----L Total: -1.4 Bone mineral density has: Decreased -0.5% since study of: 10/02/2006 FRAX%s: The graph provided illustrates a 11.8 chance for a major osteoporotic fx and a 2.4 chance for the hips probability for fx in 10 years time. IMPRESSION: Osteopenia (T Score between -2.5 and -1). There is slightly increased risk of fracture and the patient may be considered for treatment. Re-Screen 2-5 years. NOTE: T-SCORE=SD OF THE YOUNG ADULT MEAN.
[2022-04-23 22:46] LABS: Basophils # (A) 0.06 X 10*3/uL (0.00-0.10); Basophils % (A) 0.7 %; Eosinophils # (A) 0.09 X 10*3/uL (0.04-0.35); Eosinophils % (A) 1.1 %; HCT 43.1 % (37.2-46.3); HGB 14.3 g/dL (12.0-15.0); Immature Grans, Automated 0.5 %; Lymphocytes # (A) 2.45 X 10*3/uL (0.90-5.00); MCH 32.8 pg (27.0-32.0); MCHC 33.2 g/dL (32.0-37.0); MCV 98.9 fL (80.0-97.0); Mean Platelet Volume 10.9 fL (9.5-12.2); Monocytes # (A) 0.76 X 10*3/uL (0.20-1.00); Monocytes % (A) 9.3 %; NRBC Per 100 WBC 0 /100 WBCS (0.0-0.0); Neutrophils # (A) 4.78 X 10*3/uL (1.80-7.70); Neutrophils % (A) 58.4 %; Platelet Count 307 X 10*3/uL (140-440); RBC 4.36 X 10*6/uL (4.10-5.20); RDW 12.3 % (11.5-14.5); WBC 8.18 X 10*3/uL (4.50-10.00)
[2022-04-24 01:46] LABS: Hepatitis C IgG Antibody Nonreactive (Nonreactive)
[2022-04-24 01:48] LABS: ALT 18 U/L (8-44); AST 22 U/L (13-35); African American GFR (CKD) 84.8 (60.0-200.0); Albumin 4.2 g/dL (3.8-4.9); Alkaline Phosphatase 56 U/L (41-126); BUN/Creat Ratio 18.25 Ratio (12.00-20.00); Blood Urea Nitrogen 14.6 mg/dL (9.0-27.0); Calcium 9.6 mg/dL (8.7-10.3); Carbon Dioxide 26.1 mmol/L (20.0-27.5); Chloride 96 mmol/L (96-109); Chol/HDL Ratio 3.78 Ratio; Globulin 2.1 g/dL (1.6-3.3); Glucose 87 mg/dL (70-110); LDL Cholesterol,Calculated 126.5 mg/dL (0.0-131.0); Non-African American GFR(CKD) 73.1 (60.0-200.0); Sodium 133 mmol/L (135-145); Total Protein 6.3 g/dL (6.2-8.2)
--- NOTE | 2022-04-24 09:24 | XR ---
EXAM TYPE: LUMBAR SPINE X RAY SERIES COMPARISON: NONE HISTORY: Pain TECHNIQUE: 3 views are submitted. FINDINGS: Diffuse osteopenia with postsurgical changes. Grade 1 anterolisthesis L4 on L5. Hypertrophic and dege nerative changes at remaining levels. Vascular calcifications noted. New postsurgical change at L3-L4 relative to the prior exam appears in near-anatomic alignment. IMPRESSION: 1. Postsurgical change with grade 1 anterolisthesis of L4 on L5 stable prior exam.
--- NOTE | 2022-04-24 19:22 | MM ---
Reason for Exam: Screening (asymptomatic). Last mammogram was performed 1 year(s) and 2 month(s) ago. Patient History: Menarche at age 12. First Full-Term at age 24. Left ovary removed at age 44. Right ovary removed at age 44. Hysterectomy at age 44. Postmenopausal. Estrogen for 10 years from age 44 until age 54. Patient used Hormonal Contraceptives for 1 year. 1979, Benign Excisional Biopsy on the right side. 1979, Benign Excisional Biopsy on the left side. Risk Values: Geetha 5 year model risk: 2.9%. NCI Lifetime model risk: 7.1%. Prior Study Comparison: 11/06/2017 Bilateral Screening Mammogram, [facility]. 11/11/2017 Left Diagnostic Mammogram, [facility]. 02/21/2021 Bilateral Screening Mammogram, [facility]. Tissue Density: There are scattered fibroglandular densities. Findings: Analyzed By CAD. Chronic bilateral nodularity. However, nodular area of focal asymmetry 12:00 anterior right breast continues to gradually enlarged. Further evaluation recommended. Overall Assessment: Incomplete: need additional imaging evaluation, BI-RAD 0 Management: Special View Mammogram of the right breast. For the gradually enlarging focal asymmetry/mass anterior 12:00 right breast. Targeted right breast ultrasound if any persisting abnormality. Electronically signed and approved by: Brett Orta M.D. Radiologist
== END | disposition home or self-care (01) ==
LOC: RADMAMWWP 15:56
PROVIDERS: ATTEND Family Medicine
DX: Z12.31 Encounter for screening mammogram for malignant neoplasm of breast (principal); M85.88 Other specified disorders of bone density and structure, other site; Z78.0 Asymptomatic menopausal state
CPT/HCPCS: 72100; 77063; 77067; 77080; 80053; 80061; 84443; 85025; 86803; 87522

== ENCOUNTER → 2022-07-04 | Outpatient (CLI) | payer MEDICARE ==
--- NOTE | 2022-07-04 13:56 | MM ---
Reason for Exam: Additional evaluation requested from abnormal screening. Last screening mammogram was performed 2 month(s) ago. Patient History: Menarche at age 12. First Full-Term at age 24. Left ovary removed at age 44. Right ovary removed at age 44. Hysterectomy at age 44. Postmenopausal. Estrogen for 10 years from age 44 until age 54. Patient used Hormonal Contraceptives for 1 year. 1979, Benign Excisional Biopsy on the right side. 1979, Benign Excisional Biopsy on the left side. Risk Values: Geetha 5 year model risk: 2.9%. NCI Lifetime model risk: 7.1%. Tissue Density: Right: The breast tissue is heterogeneously dense. This may lower the sensitivity of mammography. Findings: Analyzed By CAD. 1.3 cm mass at the 12:00 position right breast 4 cm from the nipple. Additional evaluation with ultrasound is advised. Overall Assessment: Incomplete: need additional imaging evaluation, BI-RAD 0 Management: Diagnostic Breast Ultrasound of the right breast. A clinical breast exam by your physician is recommended on an annual basis and results should be correlated with mammographic findings. This exam should not preclude additional follow-up of suspicious palpable abnormalities. Results were given to the patient verbally at the time of exam. Electronically signed and approved by: Ayaz Cannon M.D. Radiologis
--- NOTE | 2022-07-04 14:14 | USB ---
Reason for Exam: Additional evaluation requested from abnormal screening. Patient History: Menarche at age 12. First Full-Term at age 24. Left ovary removed at age 44. Right ovary removed at age 44. Hysterectomy at age 44. Postmenopausal. Estrogen for 10 years from age 44 until age 54. Patient used Hormonal Contraceptives for 1 year. 1979, Benign Excisional Biopsy on the right side. 1979, Benign Excisional Biopsy on the left side. Risk Values: Geetha 5 year model risk: 2.9%. NCI Lifetime model risk: 7.1%. Technique: Method: Targeted. Prior Study Comparison: 11/11/2017 Left Diagnostic Mammogram, [facility]. 02/21/2021 Bilateral Screening Mammogram, [facility]. 04/23/2022 Bilateral MG 3D screening mammo w/cad, [facility]. Findings: The upper inner quadrant of the right breast, the axilla of the right breast and the retroareolar of the right breast were scanned. There is a mass approximately 5 cm from the nipple at the 12:00 position right breast which measures 1.0 x 0.8 x 1.0 cm. Tissue diagnosis is recommended. Right axilla is free of adenopathy or additional mass.. Overall Assessment: Suspicious, BI-RAD 4 Management: Ultrasound Core Biopsy of the right breast. A clinical breast exam by your physician is recommended on an annual basis and results should be correlated with mammographic findings. This exam should not preclude additional follow-up of suspicious palpable abnormalities. Results were given to the patient verbally at the time of exam. Electronically signed and approved by: Ayaz Cannon M.D. Radiologis
== END | disposition home or self-care (01) ==
LOC: RADMAMWWP 13:27
PROVIDERS: ATTEND Family Medicine
DX: R92.8 Other abnormal and inconclusive findings on diagnostic imaging of breast (principal); Z78.0 Asymptomatic menopausal state
CPT/HCPCS: 77065; 76642; G0279; 77061

== ENCOUNTER → 2022-07-14 | Day surgery (SDC) | payer MEDICARE | LOC: RADUSWWP 12:28 | PROVIDERS: ATTEND Surgery | DX: R92.8 Other abnormal and inconclusive findings on diagnostic imaging of breast (principal) | CPT/HCPCS: 88305; 77065; 19083; A4648 ==

== ENCOUNTER 2022-08-08 07:10 | Day surgery (SDC) | payer MEDICARE ==
[2022-08-05 14:32] VITALS: BMI 24.7
[~2022-08-08 07:10] MED LIST changes: +ACETAMINOPHEN TAB 500 MG TAB PO PRN; -BACITRACIN 50,000 UNIT, POLYMYXIN B 500,000 UNIT in SODIUM CHLORIDE 0.9% IRRIGATIO 1,00... IRRIGATION ONE; +DEXAMETHASONE SOD PHOSPHATE 4 MG/ML 1 ML VIAL IV ONE; +HEPARIN SODIUM,PORCINE/PF 5,000 UNIT/0.5 ML SYRINGE SQ PRN; -LIDOCAINE 1% 20 ML VIAL (10MG/ML) FOR IV START INTRADERMA PRN; +MIDAZOLAM 2 MG/2 ML VIAL IV PRN; +Pre Op ABX Message 1 EACH MISC MISCELLANE ONE; -ceFAZolin 2 GM in SODIUM CHLORIDE 0.9% 100 ML IVPB ONE; +fentaNYL (PF) 50 MCG/ML 2 ML AMP IV PRN
[2022-08-08] MEDS: LACTATED RINGERS 1,000 ML IV SCH ×2 (07:40→09:56)
[2022-08-08] MEDS ORDERED: ALPRAZolam 0.25 MG TAB ONE (07:41)
[2022-08-08] MEDS ORDERED: ACETAMINOPHEN TAB 500 MG TAB ONE (07:49)
[2022-08-08] MEDS ORDERED: LIDOCAINE 1% INJ 10MG/ML (30 ML VIAL-PF) SQ ONE (08:38)
[2022-08-08] MEDS ORDERED: fentaNYL (PF) 50 MCG/ML 2 ML AMP ONE (09:51)
[2022-08-08] MEDS ORDERED: MIDAZOLAM 2 MG/2 ML VIAL ONE (09:51)
[2022-08-08] MEDS ORDERED: KETOROLAC 15 MG/ML 1 ML VIAL ONE (09:51)
[2022-08-08] MEDS ORDERED: LIDOCAINE 2% INJ 20 MG/ML (2 ML VIAL) ONE (09:51)
[2022-08-08] MEDS ORDERED: PROPOFOL 10 MG/ML 20 ML VIAL IV ONE (09:51)
[2022-08-08] MEDS ORDERED: BUPIVACAINE (PF) 0.25% 30 ML VIAL SQ ONE ×2 (09:55→10:10)
[2022-08-08] MEDS ORDERED: SODIUM CHLORIDE 0.9% 50 ML with ceFAZolin 2,000 MG IV ONE ×2 (10:09)
[2022-08-08] MEDS ORDERED: HYDROcodone/APAP 5-325MG 1 EACH TAB PO PRN (10:43)
[2022-08-08] MEDS ORDERED: NALOXONE 0.4 MG/ML 1 ML VIAL IV PRN (10:43)
--- NOTE | 2022-08-08 10:45 | P.OP ---
Date of Procedure: 08/08/22 Procedure(s) Performed: PREOPERATIVE DIAGNOSIS: Abnormal right mammogram POSTOPERATIVE DIAGNOSIS: Same PROCEDURE: Right Breast wire localization biopsy SURGEON: Josiah EBL: Minimal ANESTHESIA: General plus local COMPLICATIONS: None OPERATIVE PROCEDURE: Patient was placed on the operating room table in the portillo pine position. The patient's right breast was prepped and draped in usual sterile fashion. A curvilinear incision was made adjacent to the areola. The breast tissue was dissected until the wire was identified superiorly. The wire was brought out through this incision. I followed the wire down into the breast tissue. The breast tissue around the anterior aspect of the wire was fully excised using electrocautery. The specimen was sent for specimen radiogram. The clip was present within the specimen. The subcutaneous tissues were inspected. No bleeding was seen. The subcutaneous tissues were closed using 3- 0 Vicryl sutures. The skin was closed using a running 4-0 Monocryl stitch. Skin glue and sterile dressings were applied. DISPOSITION: Stable to recovery room
[2022-08-08] MEDS ORDERED: HYDROmorphone 0.5 MG/0.5 ML SYRINGE IVP ONE ×3 (10:50→11:20)
[2022-08-08 11:13] VITALS: TEMP 97.6
[2022-08-08] MEDS ORDERED: HYDROcodone/APAP 10-325MG 1 EACH TAB ONE (11:41)
[2022-08-08] MEDS ORDERED: HYDROcodone/APAP 10-325MG 1 EACH TAB PO ONE ×2 (11:42→11:43)
[2022-08-08 12:04] VITALS: BP 96/52; PULSE 74; RESP 14
== END 2022-08-08 12:20 | disposition home or self-care (01) ==
LOC: OR 07:10
PROVIDERS: ATTEND Surgery
DX: R92.8 Other abnormal and inconclusive findings on diagnostic imaging of breast (principal); I10 Essential (primary) hypertension; Z87.891 Personal history of nicotine dependence; M19.90 Unspecified osteoarthritis, unspecified site; Z88.5 Allergy status to narcotic agent; Z98.1 Arthrodesis status; Z79.899 Other long term (current) drug therapy; Z98.890 Other specified postprocedural states
CPT/HCPCS: 19125; 76098; 19281; C1819; J2250; J1100; J2405; J0690; J2001 ×2; J3010; J1885; J2704; J1170; J1644; 88307

== ENCOUNTER → 2022-12-17 | Outpatient (CLI) | payer MEDICARE ==
[2022-12-17 14:02] VITALS: BP 125/74; PULSE 84; RESP 18; TEMP 97.9
--- NOTE | 2022-12-17 14:59 | P.PAINPG ---
PQRS Measure Charge Sheet Comment: HISTORY OF PRESENT ILLNESS: 72 yr old female w at side as a referral from Dr Basilio presents today w severe and chronic LBP secondary to postlaminectomy syndrome for evaluation. Pt states pain level is provoked at 6 /10 in intensity, constant, localized in the lower lumbar spine, achy, dull in character w shooting pain towards the BL feet. Pain is provoked by staying in 1 position for periods of 1 hr or more. Pain is alleviated by medications ([place], ASA from Dr Basilio), heat, PT 5 yrs ago which provoked pain, home guided stretching regimen, repositioning and rest. PMH: HTN, OA PSH: L4-L5 Decompression, L3-L4 Fusion, Hysterectomy, Tonsillectomy, Appendectomy SH: Former 15 pack/yr tobacco user, 1 glass wine per day, No illicit drug use FH: Fa- CA All: Codeine Meds: See list REVIEW OF ORGAN SYSTEMS: CONSTITUTIONAL: No fevers or chills. No recent weight loss. NEUROLOGICAL: + numbness and tingling along the distal extremities. No seizure disorders or headaches. MUSCULOSKELETAL: + pain PSYCHIATRIC: Denies current depression or suicidal thoughts. Physical Examinations : Constitutional : Cooperative , not in acute distress . Neurologic : Cranial nerve II to XII intact. No focal neurological deficits. Psychiatric : alert & oriented x 3. Matching mood & appropriate affect. Judgment & insight intact. Musculoskeletal : Cervical Spine Motor strength in the deltoid and biceps: Normal right side. Normal Left side Motor strength biceps and the wrist extensors: Normal right side . Normal left side Motor strength in the triceps muscle: Normal right side. Normal left side Deep tendon reflexes: Normal at the biceps. Normal at Brachioradialis. Normal at triceps Vertebral body tenderness to deep palpation over Cervical facet loading test: positive bilaterally Spurling test: positive bilaterally Neck distraction test: positive bilaterally Meaghan sign: positive bilaterally Lumbar spine Motor strength lower extremities ,thigh and legs 5/5 Right side , 5/5 Left side Deep tendon reflexes : Normal Knee Jerk. Normal Ankle Jerk Vertebral body tenderness over L5 Lumbar facet Loading Test: positive Right / positive Left Range of motion of the lumbar spine Flexion 30 degrees, extension 10 degrees Straight Leg Raise test: Left/ Right p ositive at degree Kaden test: positive right / positive left. Severe tenderness over the Sacroiliac joint on the Right / Left sides Gaenslen test: positive bilaterally Seated flexion test: positive bilaterally. Sacral spine : Severe tenderness over the Sacroiliac joint: right side / left side Range of motion: Flexion of the lumbar spine <60 degrees Range of motion: Extension of the lumbar spine <20 degrees Gaenslen's Test positive Celso's Test positive Kaden test: positive right side / left side Thigh Thrust Test Sacral Thrust Test Imaging: MRI with and without contrast of the lumbar spine from 04/19/15 reviewed Assessment/ Plan : Post laminectomy syndrome Recommendation of x ay of the lumbar spine re: M51.36 May need additional testing if indicated and may return to clinic within 2-4 wks for a re evaluation. All questions answered. I have spent greater than 30 minutes on patient care today. Dr Craven was available by phone for the evaluation of this patient. The time was used to review the medical records including relevant urine studies and Prescription history (MAPs), review of the available imaging, evaluation and examination of the patient, coordination of care with the medical staff and if applicable referring physicians, as well as creation of the medical record PQRS Narrative: Smoking Status Former smoker Home Medications: Ambulatory Orders HYDROcodone/APAP 10-325MG [[place] 10-325] 1 tab PO Q6H PRN 11/17/16 Triamterene-Hctz 37.5-25Mg [Maxzide 37.5-25] 1 tab PO DAILY 11/17/16 Zolpidem [Ambien] 10 mg PO HS PRN 11/17/16 lisinopriL [Zestril] 2.5 mg PO DAILY 11/17/16 Controlled Substance Measures - Controlled Substance Measures Is patient prescribed a controlled substance at discharge?: No
== END ==
LOC: PNWHC3 12:16
PROVIDERS: ATTEND Specialist
DX: M96.1 Postlaminectomy syndrome, not elsewhere classified (principal); I10 Essential (primary) hypertension; M19.90 Unspecified osteoarthritis, unspecified site; Z87.891 Personal history of nicotine dependence; Z88.5 Allergy status to narcotic agent; M47.816 Spondylosis without myelopathy or radiculopathy, lumbar region
CPT/HCPCS: 99211

== ENCOUNTER → 2022-12-17 | Outpatient (CLI) | payer MEDICARE ==
--- NOTE | 2022-12-17 13:48 | XR ---
EXAM TYPE: LUMBAR SPINE X RAY SERIES COMPARISON: 04/23/2022 HISTORY: Low back pain TECHNIQUE: 4 views are submitted. FINDINGS: Diffuse osteopenia with postsurgical changes. Grade 1 anterolisthesis L4 on L5. Hypertrophic and dege nerative changes at remaining levels. Vascular calcifications noted. New postsurgical change at L3-L4 relative to the prior exam appears in near-anatomic alignment. IMPRESSION: 1. Postsurgical change with grade 1 anterolisthesis of L4 on L5 stable prior exam.
== END | disposition home or self-care (01) ==
LOC: RADXRMAIN 13:12
PROVIDERS: ATTEND Physician Assistant Medical
DX: M43.16 Spondylolisthesis, lumbar region (principal); M51.36 Other intervertebral disc degeneration, lumbar region
CPT/HCPCS: 72100

== ENCOUNTER → 2022-12-20 | Outpatient (CLI) | payer MEDICARE ==
--- NOTE | 2022-12-22 08:14 | PE ---
EXAMINATION TYPE: PET CT fusion skull to thigh DATE OF EXAM: 12/20/2022 COMPARISON: Chest CT October 24, 2022 HISTORY: Solitary pulmonary nodule, recent abnormal CT TECHNIQUE: Following the intravenous administration of 11.74 mCi of F-18 FDG, whole body images are performed from the skull base to the midthigh. Images are reviewed on the computer in the coronal, a xial, and sagittal planes. Reconstructed rotating images are created on independent workstation and reviewed on the computer. A localization and attenuation correction CT is performed in conjunction with the PET scan. Blood glucose level equals 104. SCAN: Initial Scan FINDINGS: SKULL BASE AND NECK: No areas of abnormal hypermetabolic uptake. CHEST, MEDIASTINUM, AND HILAR REGION: Persistent bilateral pulmonary nodules. Lateral right upper lob e nodule redemonstrated measuring 1.5 x 1.6 cm axial image 79 with max SUV of 4.85. Just anterior and inferior to this there is stable 1.3 cm nodule that has no abnormal hypermetabolic uptake. There is persistent superior left lower lobe pulmonary nodule measuring 1.7 x 1.3 cm axial image 79 t hat does not have abnormal hypermetabolic uptake. Max SUV less than 2.5. Persistent suspicious AP window lymph node measuring 1.6 x 0.9 cm axial image 78 has mild hypermetabo lic uptake, max SUV of 3.11. No additional areas of abnormal hypermetabolic uptake. ABDOMEN AND PELVIS: No hypermetabolic adrenal masses. Low density adrenal prominence bilaterally favo rs lipid rich hyperplasia. Normal excretion is seen. No areas of abnormal hypermetabolic uptake. OSSEOUS STRUCTURES: No areas of abnormal hypermetabolic uptake. OTHER CT: [id number] calcified plaque left greater than right carotid bulbs. Mild cardiomegaly. Tiny pericardial effusion. Enlarged pulmonary arteries consistent with underlying pulmonary artery h ypertension. Coronary artery calcification is redemonstrated. There is 2.3 cm thin-walled cyst left hepatic lobe axial image 121 incidentally noted. Additional thi n-walled cysts are suspected. Scattered colonic diverticula are present. Postsurgical change to the l ower lumbar spine is noted. IMPRESSION: Largest nodule right upper lobe is most suspicious for neoplasm. Possible AP window adeno mary ellen involvement. No metastatic disease is seen.
== END | disposition home or self-care (01) ==
LOC: RADPETMAIN 09:48
PROVIDERS: ATTEND Internal Medicine Critical Care Medicine
DX: R91.1 Solitary pulmonary nodule (principal)
CPT/HCPCS: 78815; A9552

== ENCOUNTER 2023-01-08 07:23 | Day surgery (SDC) | payer MEDICARE ==
[~2023-01-08 07:23] MED LIST changes: -ACETAMINOPHEN TAB 500 MG TAB PO PRN; -DEXAMETHASONE SOD PHOSPHATE 4 MG/ML 1 ML VIAL IV ONE; -HEPARIN SODIUM,PORCINE/PF 5,000 UNIT/0.5 ML SYRINGE SQ PRN; +LACTATED RINGERS 1,000 ML IV SCH; -MIDAZOLAM 2 MG/2 ML VIAL IV PRN; -ONDANSETRON 4 MG/2 ML VIAL IVP ONE; -Pre Op ABX Message 1 EACH MISC MISCELLANE ONE; -fentaNYL (PF) 50 MCG/ML 2 ML AMP IV PRN
[2023-01-08 08:11] VITALS: TEMP 97.2
--- NOTE | 2023-01-08 08:35 | CT ---
EXAMINATION TYPE: CT chest wo con CT DLP: 469 mGycm, Automated exposure control for dose reduction was used. DATE OF EXAM: 01/08/2023 7:42 AM COMPARISON: Pet/CT 12/20/2022 CLINICAL INDICATION:Female, 72 years old with history of ion robot bronchoscopy, Ion bronchoscopy. TECHNIQUE: Multiple axial images were obtained through the chest. Sagittal and coronal reformats were created for review. Contrast used: none. Oral contrast used: none. FINDINGS: LUNGS/ PLEURA: Scattered nodules most suspicious of which is in the right upper lobe with spiculated borders measuri ng 18 x 13 mm and more anteriorly with groundglass component measuring 14 mm additionally in the left lower lobe there is a tubular structure medially felt to represent atelectasis and/or vascular struc ture. In the left lower lobe superior segment is a 18 x 13 mm pulmonary nodule. Unless opacities in t he left upper lobe extending away from the hilum series 3 image 152. Also nodule with groundglass devan rounding it on series 3 image 129 measuring up to 9 mm in totality. A somewhat thick-walled cystic le carol is seen measuring 6 cm in the right lower lobe series 3 image 297. AIRWAY: Patent and unremarkable. HEART: Size within normal limits. Coronary artery calcifications. MEDIASTINUM: No gross evidence of adenopathy. Small hiatal hernia. VASCULATURE: No aortic aneurysm. MUSCULOSKELETAL: There is a prominent mildly enlarged left 4/10 L-AP window lymph node measuring 12 m m in short axis this is located just before the bifurcation SOFT TISSUES/LYMPH NODES: Unremarkable. LOWER NECK: No significant findings. UPPER ABDOMEN: No significant findings. IMPRESSION: 1. Multiple suspicious pulmonary nodules in the right upper lobe, left upper lobe and left lower lob e superior segment largest measuring up to 18 mm. The right lower lobe somewhat thick-walled cyst rudy suring 6 mm also present. 2. Mediastinal left 4/10/AP window lymph node which is enlarged, which was FDG avid on prior PET. 3. Small hiatal hernia.
[2023-01-08] MEDS ORDERED: ROCURONIUM 10 MG/ML (5 ML VIAL) IV ONE (08:50)
[2023-01-08] MEDS ORDERED: fentaNYL (PF) 50 MCG/ML 2 ML AMP ONE (08:50)
[2023-01-08] MEDS ORDERED: PHENYLEPHRINE-0.9% NACL SYG 1,000 MCG/10 ML SYRINGE ONE (08:50)
[2023-01-08] MEDS ORDERED: KETAMINE 10 MG/ML 20 ML VIAL ONE (08:50)
[2023-01-08] MEDS ORDERED: MIDAZOLAM 2 MG/2 ML VIAL ONE (08:50)
[2023-01-08] MEDS ORDERED: PROPOFOL 10 MG/ML 20 ML VIAL IV ONE (08:50)
[2023-01-08] MEDS ORDERED: LACTATED RINGERS 1,000 ML IV ONE (10:36)
--- NOTE | 2023-01-08 10:45 | FL ---
EXAMINATION TYPE: FL bronchoscopy DATE OF EXAM: 01/08/2023 COMPARISON: NONE HISTORY: Bronchoscopy TECHNIQUE: Fluoroscopy. FINDINGS: Fluoroscopic guidance was provided during procedure Total dose area product (DAP) in mGy*c m? (or similar): 1.13 . IMPRESSION: As Above.
[2023-01-08 12:04] VITALS: RESP 18
[2023-01-08 13:02] VITALS: BP 142/67; PULSE 67
--- NOTE | 2023-01-08 13:13 | XR ---
EXAMINATION TYPE: XR chest 1V portable DATE OF EXAM: 01/08/2023 12:58 PM COMPARISON: Chest radiographs from 11/11/2016 TECHNIQUE: XR chest 1V portable Frontal view of the chest. CLINICAL INDICATION:Female, 72 years old with history of post bronchoscopy with biopsies; FINDINGS: Lungs/Pleura: Right upper lobe prominent interstitial markings which are new as well as a left lung b ase airspace opacities. There is no evidence of pleural effusion, or pneumothorax. Pulmonary vascularity: Unremarkable. Heart/mediastinum: Cardiomediastinal silhouette is unremarkable. Musculoskeletal: No acute osseous pathology. IMPRESSION: No pneumothorax. Right upper lobe interstitial markings in left lung base consolidation changes could be invasive atelectasis. Attention on short-term follow-up imaging.
--- NOTE | 2023-01-08 13:56 | P.PCN ---
Date of Procedure: 01/08/23 Description of Procedure: Preoperative Diagnosis: Right upper lobe and left lower lobe pulmonary nodule. Right upper lobe pulmonary nodule was evident on the PET/CT. Mediastinal lymphadenopathy, left paratracheal Postoperative Diagnosis: Right upper lobe and left lower lobe pulmonary nodule. Right upper lobe pulmonary nodule was evident on the PET/CT. Mediastinal lymphadenopathy, left paratracheal Procedure(s) Performed: Flexible bronchoscopy Robotic-assisted bronchoscopy and addition to radial ultrasound evaluation of the lung mass Robotic-assisted test monitor needle aspirate, transbronchial biopsies, transbronchial brushing of the right upper lobe mass in addition to a bronchioloalveolar lavage Robotic-assisted test monitor needle aspirate, transbronchial biopsies, transbronchial brushing of the left lower lobe mass in addition to a bronchioloalveolar lavage Endobronchial ultrasound Endobronchial ultrasound-guided transbronchial needle aspirate of station 4 L lymph node Anesthesia: LOIS Surgeon: Katherine Michaud Estimated Blood Loss (ml): 0 Pathology: other Condition: stable Disposition: same day Operative Findings: A physical exam was performed. Informed consent was obtained from the patient after explaining all the risks (pneumothorax, life threatening bleeding, infection and adverse effects due to medications), benefits and alternatives to the procedure which the patient appeared to understand and so stated. The patient was connected to the monitoring devices. General anesthesia was induced and the patient was intubated by anesthesia. A final timeout was performed and the procedure confirmed by the attending staff bronchoscopist. The bronchoscope was inserted and the airway examined. The flexible bronchoscope was removed and the robotic bronchoscope was inserted. Registration was completed. I next guided the robotic bronchoscope using the navigation system into the right upper lobe lobe posterior segment segment. Once in proper position, the bronchoscope was frozen. The radial EBUS probe was placed through the bronchoscope and confirmed abnormal u/s images vs normal lung. A needle was placed through the working channel and under fluoroscopic guidance, we sampled the area thought to have the mass twice. We then used a cloud biopsy pattern with ultrasound confirmation for 4 additional passes with the needle. U/S evaluation was then used to reconfirm location. Forceps were next introduced through working channel and extended the appropriate distance and 3 transbronchial biopsies were performed using fluoroscopic guidance. The u/s probe was then reinserted to confirm location. When confirmed this process was repeated for a total of 6 transbronchial biopsies. After reassessment with EBUS, a brush was placed through the extendable working channel for 1 pass with fluoroscopic guidance. U/S evaluation was then used to confirm location. 20ml of saline was then instilled into the area of the lesion. The robotic bronchoscope was removed and the airway inspected with a flexible bronchoscope and 5 ml of effluent from the BAL was collected. I next guided the robotic bronchoscope using the navigation system into the left lower lobe lobe lateral segment segment. Once in proper position, the bron choscope was frozen. The radial EBUS probe was placed through the bronchoscope and confirmed abnormal u/s images vs normal lung. A needle was placed through the working channel and under fluoroscopic guidance, we sampled the area thought to have the mass twice. We then used a cloud biopsy pattern with ultrasound confirmation for 4 additional passes with the needle. U/S evaluation was then used to reconfirm location. Forceps were next introduced through working channel and extended the appropriate distance and 3 transbronchial biopsies were performed using fluoroscopic guidance. The u/s probe was then reinserted to confirm location. When confirmed this process was repeated for a total of 6 transbronchial biopsies After reassessment with EBUS, a brush was placed through the extendable working channel for 1 pass with fluoroscopic guidance. U/S evaluation was then used to confirm location.20ml of saline was then instilled into the area of the lesion. The robotic bronchoscope was removed and the airway inspected with a flexible bronchoscope and 10 ml of effluent from the BAL was collected. The flexible bronchoscope was removed and the EBUS-TBNA bronchoscope was used to intubate the pateint through the ETT. An ultrasound examination identified all major landmarks was completed. The EBUS-TBNA scope was used to evaluate station 4L lymph node. The lymph node was identified via ultrasound and the shortest diameter was measured to be 9 x 11 mm. The corresponding available CT scan measurement was compared to EBUS image. The needle was then inserted and 4 passes were taken under direct ultrasonographic visualization. Each pass was maintained with good suction. The patient was then extubated with the EBUS-TBNA bronchoscope and intubated with an Olympus IT bronchoscope without difficutly. The airways were inspected and cleared of secretions and blood. Fluoroscopic check for pneumothorax was negative upon completion of the procedure. There was 0 ml blood loss with the procedure. FINDINGS: 1.The airways appeared normal 2 Successful navigation, ultrasonographic identification, and biopsies of right upper and left lower lobe mass 3.The EBUS view was (Concentric/Eccentric)}. - Stations sampled: 4L - The rest of the stations were not sampled due to small size: RECOMMENDATIONS: Await pathology and cytology results The referring physician will be alerted to the results when available. The patient was advised to follow up with the referring physician with the biopsy results Patient will be called with results.
== END 2023-01-08 13:23 | disposition home or self-care (01) ==
LOC: ORWHC2ENDO 07:23
PROVIDERS: ATTEND Internal Medicine Critical Care Medicine
DX: C34.11 Malignant neoplasm of upper lobe, right bronchus or lung (principal); I10 Essential (primary) hypertension; M19.90 Unspecified osteoarthritis, unspecified site; Z87.891 Personal history of nicotine dependence; Z79.899 Other long term (current) drug therapy; Z88.5 Allergy status to narcotic agent
CPT/HCPCS: 88108; 88305; 88342; 88341; 71045; 71250; 31623; 31624; 31652; S2900; J2250; J3010; J2370; J2704; 31625; 31633

== ENCOUNTER → 2023-01-20 | Outpatient (CLI) | payer MEDICARE ==
--- NOTE | 2023-01-20 19:06 | MR ---
EXAMINATION TYPE: MR brain wo/w con DATE OF EXAM: 01/20/2023 COMPARISON: PET/CT 12/20/2022 HISTORY: 72-year-old female C3 4.11, lung cancer, assess for metastatic disease. TECHNIQUE: Multiplanar, multisequence images of the brain and brainstem were acquired before and aft er administration of 6.5 mL IV Gadavist. Diffusion weighted imaging is performed. FINDINGS: No evidence for acute infarction, hemorrhage, mass, mass effect, midline shift, herniation, effacemen t of basal cisterns, or extra-axial fluid collection. There is moderate generalized supratentorial volume loss. Mild ventricular prominence likely relates to central cerebral atrophy. Major intracranial flow voids are intact. However, the vertebral and basilar arteries are diminutive in caliber. T2-weighted FLAIR images and T2-weighted images show no significant white matter signal abnormalities . Suspect an incidental, small 8 mm thin-walled pineal gland cyst. Otherwise, midline structures demon strate normal morphology. The craniocervical junction is normal. Post contrast images demonstrate no evidence of pathologic enhancement. Dural venous sinuses are pat ent. Mild mucosal thickening throughout the ethmoid air cells. Globes are intact. IMPRESSION: 1. No MRI evidence for intracranial/brain metastases. 2. Moderate generalized cerebral atrophy. 3. Small caliber to the vertebral and basilar arteries on a congenital basis. Correlate for any chron ic symptoms of vertebrobasilar insufficiency. 4. Mild chronic ethmoid sinus disease.
== END | disposition home or self-care (01) ==
LOC: RADMRIMAIN 11:26
PROVIDERS: ATTEND Internal Medicine Hematology & Oncology
DX: C34.11 Malignant neoplasm of upper lobe, right bronchus or lung (principal); J32.2 Chronic ethmoidal sinusitis; G45.0 Vertebro-basilar artery syndrome; G31.1 Senile degeneration of brain, not elsewhere classified
CPT/HCPCS: 70553; A9585

== ENCOUNTER → 2023-01-23 | Outpatient (CLI) | payer MEDICARE ==
--- NOTE | 2023-01-25 13:31 | MR ---
EXAMINATION TYPE: MR lumbar spine wo con DATE OF EXAM: 01/23/2023 5:41 PM COMPARISON: 04/19/2015. PET/CT 12/20/2022. CLINICAL INDICATION:Female, 72 years old with history of M51.36 INTERVERTEBRAL DISC DEGENERATION, LUM BAR RE; Low back pain into Rt side TECHNIQUE: Multi planar, multi sequence imaging was performed utilizing: T1-weighted, T2-weighted, a nd turbo inversion recovery imaging of the lumbar spine. IV Contrast: None. FINDINGS: Alignment: The lumbar vertebral bodies have preserved heights with grade 1 anterolisthesis of L4 and L5. Cord: The conus medullaris and the distal spinal cord appear unremarkable with regards to their signa l intensity and morphology. Bones/Discs: Postsurgical changes to the spine at L3-S1 with susceptibility artifact limiting evaluat ion. The visualized bone signal is otherwise demonstrated high T1 high T2 signal vertebral body heman giomas in L1, T11 and T10. Multilevel disc degenerative is noted and most pronounced at the L4-L5 wit h mild anterolisthesis.. Intervertebral disc signal is maintained. T12-L1: No evidence of significant spinal canal stenosis or neural foraminal stenosis. L1-L2: Central/left central disc protrusion without significant spinal canal stenosis. L2-L3: Disc bulge and facet joint arthropathy result in moderate to severe spinal canal and moderate bilateral neural foraminal stenosis. L3-L4: Disc bulge and facet joint arthropathy without significant spinal canal stenosis and mild bila teral neural foraminal stenosis. L4-L5: Disc uncovering from grade 1 anterolisthesis and facet joint arthropathy with mild spinal jun l stenosis and mild to moderate bilateral neural foraminal stenosis. L5-S1: The disc is rounded posterior morphology without significant spinal canal stenosis. Facet join t arthropathy with mild neural foraminal stenosis. Possible T12-L1 disc bulging versus bilobed protrusions no significant spinal canal or neural foramin al stenosis. The remainder of the levels are unremarkable. Other findings: None. IMPRESSION: 1. L2-L3 moderate to severe spinal canal stenosis. Associated moderate bilateral neural foraminal st enosis. 2. Post fixation changes and disc degeneration with associated osteoarthritic changes. Fixation gonzalez ges at L4-L5 are new from 2014. 3. L1-L2 left central and central disc protrusion without significant spinal canal or neural foramin al stenosis. 4. The remainder of the spinal canal neural foramen are grossly patent.
== END | disposition home or self-care (01) ==
LOC: RADMRIMAIN 16:17
PROVIDERS: ATTEND Specialist
DX: M51.36 Other intervertebral disc degeneration, lumbar region (principal); M48.061 Spinal stenosis, lumbar region without neurogenic claudication; M51.26 Other intervertebral disc displacement, lumbar region; M99.73 Connective tissue and disc stenosis of intervertebral foramina of lumbar region
CPT/HCPCS: 72148

== ENCOUNTER → 2023-02-05 | Outpatient (CLI) | payer MEDICARE ==
[2023-02-05 13:20] VITALS: BP 128/88; PULSE 71; RESP 18; TEMP 98
--- NOTE | 2023-02-05 14:26 | P.PAINPG ---
PQRS Measure Charge Sheet Comment: A 72 yr old female w at side with a history of severe and chronic LBP x yrs secondary to lumbar DDD and spondylosis with facet arthropathy without myelopathy presents today for MRI results. Pain level is provoked at 6/10 in intensity, constant, localized in the lumbar spine, throbbing in character w shooting towards the BLEs, R > L. Pain is provoked by PT years ago, walking/ standing/ sitting for periods of 15 min or more. Pain is alleviated with heat, ice, medications, laying supine and rest. Patient is currently on Dumas Patient denies any side effects of the medication(s), denies excessive drowsiness or sleepiness, denies suicidal ideation and reports that the current pain medication is helping to control the pain and improve activities of daily living. Patient denies any motor or sensory deficits. Patient denies any fever or night sweats, denies any change in the bowel movements or urination. Physical Examination: -Constitutional: Cooperative. Not in acute distress . - Neurologic: Cranial nerve II to XII intact. No focal neurological deficits. - Psychatric: Alert & oriented x 3. Matching mood & appropriate affect. Judgment and insight intact. - Musculoskeletal: Cervical spine: Muscle bulk/ tone/ strength in the bilateral upper extremities normal Vertebral body tenderness to palpation over Spurling test positive Distraction test positive Facet loading test positive TTP Thoracic spine Muscle bulk / tone/ strength in the bilateral paraspinal muscles normal Vertebral body tender to palpation over Facet loading test positive TTP Lumbar spine: Motor bulk/ tone/ strength lower extremities , thigh and legs : 5/5 Deep tendon reflexes : Normal Knee Jerk. Normal Ankle Jerk . Vertebral body tenderness to palpation over Bryant Test positive Lumbar Facet Loading Test positive Straight Leg Raise: positive at 30 degrees right side/ left side Gaenslen's Test positive Sacral spine : Severe tenderness over the Sacroiliac joint: right side / left side Range of motion: Flexion of the lumbar spine <60 degrees Range of motion: Extension of the lumbar spine <20 degrees Gaenslen's Test positive right side / left side Kaden test: positive right side / left side Thigh Thrust Test positive right side / left side Sacral Thrust Test positive right side / left side Imaging: MRI non contrast of the lumbar spine from 01/23/23 reviewed Assessment and plan: Chronic LBP secondary to lumbar DDD, spondylosis with facet arthropathy without myelopathy Recommendation of SCS trial. Video in review, but pt/ still unsure to go forward at this time. Risks, benefits of procedure discussed and pt verbalized understanding. Admits to anticoagulant use or medical history of diabetes. Protocol for discontinuation/ continuation of medications aretha procedure discussed. Minimal anesthesia provided, if clinically indicated, consisting of Versed and Fentanyl. All questions answered. I have spent less than 30 minutes on patient care today. Dr Craven was available by phone for the evaluation of this patient. The time was used to review the medical records including relevant urine studies and Prescription h istory (MAPs), review of the available imaging, evaluation and examination of the patient, coordination of care with the medical staff and if applicable referring physicians, as well as creation of the medical record PQRS Narrative: Smoking Status Former smoker Home Medications: Ambulatory Orders HYDROcodone/APAP 10-325MG [Dumas 10-325] 1 tab PO Q6H PRN 11/17/16 Triamterene-Hctz 37.5-25Mg [Maxzide 37.5-25] 1 tab PO DAILY 11/17/16 Zolpidem [Ambien] 10 mg PO HS PRN 11/17/16 lisinopriL [Zestril] 2.5 mg PO DAILY 11/17/16 Controlled Substance Measures - Controlled Substance Measures Is patient prescribed a controlled substance at discharge?: No
== END ==
LOC: PNWHC3 12:17
PROVIDERS: ATTEND Specialist
DX: M51.36 Other intervertebral disc degeneration, lumbar region (principal); M47.816 Spondylosis without myelopathy or radiculopathy, lumbar region; G89.29 Other chronic pain; Z87.891 Personal history of nicotine dependence; Z88.5 Allergy status to narcotic agent
CPT/HCPCS: 99211

== ENCOUNTER → 2023-06-25 | Outpatient (CLI) | payer MEDICARE ==
--- NOTE | 2023-06-26 13:07 | PE ---
EXAMINATION TYPE: PET CT fusion skull to thigh DATE OF EXAM: 06/25/2023 CLINICAL INDICATION:Female, 73 years old with history of C34.11 MALIGNANT NEOPLASM OF UPPER LOBE, RIG HT BRO; TECHNIQUE: Following the intravenous administration of 10.3 mCi of F-18 FDG, whole body images are performed from the skull base to the midthigh. Images are reviewed on the computer in the coronal, a xial, and sagittal planes. Reconstructed rotating images are created on independent workstation and reviewed on the computer. A non-contrast CT is performed in conjunction with the PET scan. Glucose level 107 mg/dL CT DLP: 281 mGycm, Automated exposure control for dose reduction was used. COMPARISON: CT 01/08/2023, PET/CT 12/20/2022. FINDINGS: Mediastinal SUV mean is 2.3. Hepatic parenchyma SUV mean is 2.9. SKULL BASE AND NECK: No suspicious radiotracer activity. CHEST, MEDIASTINUM, AND HILAR REGION: Right upper lung pulmonary nodule Max SUV 8.6, previously 1.0 measuring up to 9 mm may be fractionall y smaller than prior. Right upper lobe more posterior laterally max SUV 5.0, previously 4.9. Has more of a flattened appear ance on today's exam Left lower lung pulmonary nodule Max SUV 2.1, previously 1.7 measuring 12 x 10 mm may be fractionally smaller today's exam. There is a calcified lymph node in the right low paratracheal region. ABDOMEN AND PELVIS: No suspicious radiotracer activity. MUSCULOSKELETAL STRUCTURES: No suspicious radiotracer activity. OTHER CT: Teyi-wv-qodimthv calcified plaque left greater than right carotid bulbs. Mild cardiomegaly. Tiny pericardial effusion. Enlarged pulmonary arteries consistent with underlying pulmonary artery h ypertension. Coronary artery calcification is redemonstrated. Stable 2.3 cm thin-walled cyst left hep atic lobe axial. Additional thin-walled cysts are suspected. Scattered colonic diverticula are presen t. Postsurgical change to the lower lumbar spine is noted. IMPRESSION: Right upper lobe pulmonary nodules, the smaller has increased in metabolic activity while the other 2 remain stable for metabolic activity. Malignancy remains in the differential with granulomatous gonzalez ge. If tissue sampling hasn't been performed it is recommended.
== END | disposition home or self-care (01) ==
LOC: RADPETMAIN 12:07
PROVIDERS: ATTEND Internal Medicine Hematology & Oncology
DX: C34.11 Malignant neoplasm of upper lobe, right bronchus or lung (principal); N62 Hypertrophy of breast; I10 Essential (primary) hypertension; M54.50 Low back pain, unspecified; R91.8 Other nonspecific abnormal finding of lung field
CPT/HCPCS: 78815; A9552

== ENCOUNTER → 2023-11-13 | Outpatient (CLI) | payer MEDICARE ==
--- NOTE | 2023-11-16 20:12 | MM ---
Reason for Exam: Screening (asymptomatic). Last mammogram was performed 1 year(s) and 7 month(s) ago. Patient History: Menarche at age 12. First Full-Term at age 24. Left ovary removed at age 44. Right ovary removed at age 44. Hysterectomy at age 44. Postmenopausal. Patient has history of breast feeding. Estrogen for 10 years from age 44 until age 54. Patient used Hormonal Contraceptives for 1 year. 08/08/2022, High risk MG pre op needle loc RT on the right side. 07/14/2022, High risk US biopsy breast VAD RT on the right side. 1979, Benign Excisional Biopsy on the right side. 1979, Benign Excisional Biopsy on the left side. Risk Values: Geetha 5 year model risk: 2.9%. NCI Lifetime model risk: 6.7%. Prior Study Comparison: 04/23/2022 Bilateral MG 3D screening mammo w/cad, [facility]. 07/04/2022 Right MG 3D work up w/cad RT, [facility]. 07/14/2022 Right MG diagnostic mammo RT wo CAD, [facility]. Tissue Density: There are scattered areas of fibroglandular density. Findings: Analyzed By CAD. There are postexcisional changes on the right. Benign vascular and well cystic calcifications are demonstrated. There is chronic nodularity on the left and unchanged bilateral areas of asymmetric density. There is no suspicious group of microcalcifications or new suspicious mass in either breast. Overall Assessment: Benign, BI-RAD 2 Management: Screening Mammogram of both breasts in 1 year. . Patient should continue monthly self-breast exams. A clinical breast exam by your physician is recommended on an annual basis. This exam should not preclude additional follow-up of suspicious palpable abnormalities. Note on Geetha scores and lifetime risk: 1. A Geetha score greater than 3% is considered moderate risk. If this is the case, consider specialist referral to assess eligibility for a risk reducing agent. 2. If overall lifetime risk for the development of breast cancer is 20% or higher, the patient may qualify for future screening with alternating mammogram and breast MRI. Electronically signed and approved by: Brett Orta M.D. Radiologist
== END | disposition home or self-care (01) ==
LOC: RADMAMWWP 10:55
PROVIDERS: ATTEND Internal Medicine Hematology & Oncology
DX: Z12.31 Encounter for screening mammogram for malignant neoplasm of breast (principal); N62 Hypertrophy of breast; I10 Essential (primary) hypertension; C34.11 Malignant neoplasm of upper lobe, right bronchus or lung
CPT/HCPCS: 77063; 77067

== ENCOUNTER → 2024-02-19 | Outpatient (CLI) | payer MEDICARE ==
--- NOTE | 2024-02-23 11:13 | PE ---
EXAMINATION TYPE: PET CT fusion skull to thigh DATE OF EXAM: 02/19/2024 COMPARISON: No recent pertinent CT. Prior PET/CT: 11/05/2023 HISTORY: Upper lobe neoplasm TECHNIQUE: Following the intravenous administration of 10.2 mCi of F-18 FDG, whole body images are p erformed from the skull base to the midthigh. Images are reviewed on the computer in the coronal, ax ial, and sagittal planes. Reconstructed rotating images are created on independent workstation and r eviewed on the computer. A localization and attenuation correction CT is performed in conjunction w ith the PET scan. DLP: 198.64 mGycm SCAN: Subsequent Blood glucose: 95 mg/dL Average Mediastinum SUV: 2.07 Average Liver SUV: 3.23 FINDINGS: NECK: No abnormal uptake THORAX: There is mild intermediate activity in the peripheral right upper lung field, example image 6 6, SUV 2.6. There is mild uptake within the periphery of the posterior lateral left midlung. This has an SUV of 2.78, example image 70. Some subtle uptake may be within the medial aortopulmonic window level, image 69, SUV 3.42. ABDOMEN: No abnormal uptake PELVIS: There is intense activity at the level of the anus. Example image 210, SUV 12.4. Correlation is recommended. OSSEOUS STRUCTURES: No abnormal uptake LOCALIZATION CT: The lung densities within the posterior lateral left upper lung field anterior and l ateral right upper lung field are increased in volume over the interval. SUV is slightly increased ov er the interval. COMPARISON: The lung densities within the posterior lateral left upper lung field anterior and latera l right upper lung field SUV is slightly increased over the interval. Suspected medial aortic pulmoni c window lymph node is slightly increased over the interval. IMPRESSION: 1. Increased soft tissue density within the posterior lateral left upper lung field and right anterio r lateral lung field with slight increase uptake of radiotracer. Findings can be suggestive for worse tia metastatic disease. Given the intermediate activity, inflammatory process however should be cons idered within the differential. 2. There may be some mild intermediate uptake within a medial aortopulmonic window lymph node is not enlarged by CT criteria. Inflammatory change and neoplasm are within the differential. 3. Distant metastases not otherwise apparent. 4. There is marked uptake in the region of the anus. Neoplasm is not excluded. Additional workup is r ecommended.
== END | disposition home or self-care (01) ==
LOC: RADPETMAIN 14:39
PROVIDERS: ATTEND Internal Medicine Critical Care Medicine
DX: C78.02 Secondary malignant neoplasm of left lung (principal); C34.11 Malignant neoplasm of upper lobe, right bronchus or lung
CPT/HCPCS: 78815; A9552

== ENCOUNTER 2024-05-20 12:41 | Day surgery (SDC) | payer MEDICARE ==
[2024-05-16 14:32] VITALS: BMI 23.8
[2024-05-20] MEDS ORDERED: LIDOCAINE 1% INJ 10MG/ML (20 ML MDV) ONE (13:10)
[2024-05-20] MEDS ORDERED: PROPOFOL 10 MG/ML 20 ML VIAL IV ONE (13:10)
[2024-05-20 14:02] VITALS: TEMP 97.3
[2024-05-20] MEDS: LACTATED RINGERS 1,000 ML IV SCH (14:09)
[2024-05-20] MEDS: IV FLUID CONTINUATION 1,000 ML IV ONE (14:19)
--- NOTE | 2024-05-20 15:23 | P.PCN ---
Date of Procedure: 05/20/24 Procedure(s) Performed: BRIEF HISTORY: Patient is a 74-year-old pleasant white female scheduled for an elective colonoscopy as a part of evaluation of Hemoccult positive stool. PROCEDURE PERFORMED: Colonoscopy with snare polypectomy. PREOPERATIVE DIAGNOSIS: Hemoccult positive stool. IV sedation per Anesthesia. PROCEDURE: After informed consent was obtained, the patient, was brought into the endoscopy unit. IV sedation was administered by Anesthesia under continuous monitoring. Digital rectal examination was normal. Initially the Olympus CF-160 flexible video colonoscope was then inserted in the rectum, gradually advanced into the cecum without any difficulty. Careful examination was performed as the scope was gradually being withdrawn. Ileocecal valve and the appendiceal orifice were visualized and appeared normal. Prep was excellent. Mucosa of the cecum, ascending colon, transverse colon, appeared normal. In the descending colon at 50 cm from the anal verge there was a 1 cm polyp removed by snare polypectomy. Rest of the descending colon, sigmoid colon, and rectum appeared normal. Sigmoid diverticulosis retroflexion was performed in the rectum and no lesions were seen. The patient tolerated the procedure well. IMPRESSION: 1 cm descending colon polyp status post polypectomy Scattered sigmoid diverticulosis RECOMMENDATIONS: Findings of this examination were discussed with the patient as well as her family.. Advised to follow-up with the biopsy results. If the biopsy reveals adenoma she can have repeat colonoscopy in 3 years
[2024-05-20 15:40] VITALS: BP 125/78; PULSE 67; RESP 18
== END 2024-05-20 16:08 | disposition home or self-care (01) ==
LOC: ORWHC2ENDO 12:41
PROVIDERS: ATTEND Internal Medicine Gastroenterology
DX: D12.4 Benign neoplasm of descending colon (principal); C34.90 Malignant neoplasm of unspecified part of unspecified bronchus or lung; Z88.5 Allergy status to narcotic agent; Z79.899 Other long term (current) drug therapy
CPT/HCPCS: 88305; 45385; J2001; J2704

== ENCOUNTER → 2024-06-30 | Outpatient (CLI) | payer MEDICARE ==
--- NOTE | 2024-07-03 19:43 | PE ---
EXAMINATION TYPE: PET CT fusion skull to thigh DATE OF EXAM: 06/30/2024 COMPARISON: No recent pertinent CT. Prior PET/CT: 02/19/2024 HISTORY: Lung cancer TECHNIQUE: Following the intravenous administration of 10.34 mCi of F-18 FDG, whole body images are performed from the skull base to the midthigh. Images are reviewed on the computer in the coronal, a xial, and sagittal planes. Reconstructed rotating images are created on independent workstation and reviewed on the computer. A localization and attenuation correction CT is performed in conjunction with the PET scan. DLP: 241.43 mGycm SCAN: Subsequent Blood glucose: 106 mg/dL Average Mediastinum SUV: 2.68 Average Liver SUV: 3.16 FINDINGS: NECK: There is a small focus of radiotracer within the right maxilla, image 25. This has an SUV of 3 .79. Correlate for dental disease. There is mild increased uptake within the right vocal cord level. Right vocal cord level is asymmetri c and has a SUV 4.77, image 51. Direct visualization recommended. Neoplasm is not excluded. THORAX: Uptake within a small density posterior left apex measures 0.62, image 66. Previous SUV 0.86 There is mild uptake within the nodule and some pleural thickening along the right upper lobe lateral margin. Image 75, SUV 1.51. Previous SUV 2.29 There is mild uptake in the posterior left lung superior segment lower lobe, image 77, SUV 1.81. Prev ious SUV 2.92. Minimal uptake is within a density within the anterior right mid lung. Image 82, SUV 1.11. Previous SUV 1.46 ABDOMEN: No abnormal uptake PELVIS: No abnormal uptake OSSEOUS STRUCTURES: No suspicious uptake to suggest metastasis LOCALIZATION CT: There is persistent of the densities within the lungs. Enlarged mediastinal adenopat hy is not evident. Previously are not identified. COMPARISON: There is diminished radiotracer within the lung findings compared to the prior study. IMPRESSION: 1. Improvement of radiotracer within the bilateral lung patel in the intermediate range, diminished from comparison study. 2. Small focus of radiotracer within the right maxilla can be related to dental disease. [facility], , 07/03/2024 7:40 PM
== END | disposition home or self-care (01) ==
LOC: RADPETMAIN 11:00
PROVIDERS: ATTEND Radiology Radiation Oncology
CPT/HCPCS: 78815

== ENCOUNTER → 2024-09-19 | Outpatient (CLI) | payer MEDICARE ==
--- NOTE | 2024-09-19 15:56 | BD ---
EXAMINATION TYPE: Axial Bone Density DATE OF EXAM: 09/19/2024 CLINICAL HISTORY: 74 years old Female. ICD-10 CODE: Z78.0 POST MENOPAUSAL,Z00.00 ANNUAL VISIT , Darrius tional History: Height: 60.5 Weight: 121 FRAX RISK QUESTIONS: Family History (Parent hip fracture): no History of Fracture in Adulthood: yes Secondary Osteoporosis: yes 3. Menopause before 45: yes RISK FACTORS HISTORY OF: History of rt Wrist Fracture: yes When: age 39 Surgery to L- Spine: yes When: age 49 MEDICATIONS: Thyroid Medications: no Osteoporosis Medications: no EXAM MEASUREMENTS: Bone mineral densitometry was performed using the [employer] System. Bone mineral density about the R hip (g/cm2): 0.746 Bone mineral density about the L hip (g/cm2): 0.751 T Score values are as follows: -----R Neck: -2.3 -----L Neck: -2.2 -----R Total: -2.1 -----L Total: -2.0 Z Score values are as follows: -----R Neck: -0.1 -----L Neck: -0.1 -----R Total: -0.1 -----L Total: 0.0 Bone mineral density has: Decreased -10.1% since study of: 04/23/2022 FRAX%s: The graph provided illustrates a 22.0% chance for a major osteoporotic fx and a 6.4% chance f or the hips probability for fx in 10 years time. IMPRESSION: Osteopenia (T Score between -2.5 and -1) remains present. There is slightly increased risk of fracture and the patient may be considered for treatment. Re-Screen 2-5 years. NOTE: T-SCORE=SD OF THE YOUNG ADULT MEAN. [facility], , 09/19/2024 3:53 PM
== END | disposition home or self-care (01) ==
LOC: RADBDWWP 14:35
PROVIDERS: ATTEND Family Medicine
DX: Z00.00 Encounter for general adult medical examination without abnormal findings (principal); Z78.0 Asymptomatic menopausal state; M85.89 Other specified disorders of bone density and structure, multiple sites
CPT/HCPCS: 77080

== ENCOUNTER → 2024-10-27 | Outpatient (CLI) | payer MEDICARE ==
--- NOTE | 2024-10-30 21:06 | PE ---
EXAMINATION TYPE: PET CT fusion skull to thigh DATE OF EXAM: 10/27/2024 COMPARISON: No recent pertinent CT. Prior PET/CT: 06/30/2024 CLINICAL INDICATION: Female, 74 years old with history of C34.11 LUNG CANCER, TECHNIQUE: Following the intravenous administration of 8.86 mCi of F-18 FDG, whole body images are p erformed PET CT fusion skull to thigh. Images are reviewed on the computer in the coronal, axial, an d sagittal planes. Reconstructed rotating images are created on independent workstation and reviewed on the computer. A localization and attenuation correction CT is performed in conjunction with the PET scan. DLP: 211.31 mGycm SCAN: Subsequent Blood glucose: 93 mg/dL Average Mediastinum SUV: 3.13 Average Liver SUV: 4.09 FINDINGS: NECK: No abnormal uptake THORAX: No abnormal uptake. Previous intermediate type signal not readily apparent on the current exa m. No suspicious uptake within areas of increased density within the lung patel. This would include image 66 posterior lateral left lung apex SUV 0.76. Nodule lateral right upper lung field. Image 75, SUV 1.13. Superior segment left lower lobe image 78, SUV 1.78 ABDOMEN: No abnormal uptake PELVIS: No abnormal uptake OSSEOUS STRUCTURES: No abnormal uptake LOCALIZATION CT: Postsurgical changes within the lumbar spine COMPARISON: Findings haven't continued improvement IMPRESSION: 1. Diminished radiotracer into the intermediate range within the lung patel. No suspicious hyperinte nsities suggest active or new metastatic processes. [facility], , 10/30/2024 9:04 PM
== END | disposition home or self-care (01) ==
LOC: RADPETMAIN 11:54
PROVIDERS: ATTEND Radiology Radiation Oncology
DX: C34.11 Malignant neoplasm of upper lobe, right bronchus or lung (principal); C78.02 Secondary malignant neoplasm of left lung
CPT/HCPCS: 78815; A9552

== ENCOUNTER → 2025-03-14 | Outpatient (CLI) | payer MEDICARE ==
--- NOTE | 2025-03-15 08:23 | MR ---
EXAMINATION TYPE: MR brain wo/w con DATE OF EXAM: 03/14/2025 COMPARISON: Prior MRI brain January 20, 2023 HISTORY: Hx of lung cancer TECHNIQUE: Multiplanar, multisequence images of the brain and brainstem is performed without and with IV contras t, utilizing 6 mL intravenous Gadobutrol . FINDINGS: Diffusion weighted images demonstrate no evidence of a recent infarct or other diffusion ab normality. There is no extra-axial fluid collection or significant white matter signal abnormality. Mild ventricular and sulcal prominence is redemonstrated. Midline structures redemonstrate incidental 8 mm pineal cyst. The craniocervical junction appears wi thin normal limits. Post contrast images demonstrate no abnormal enhancement. Small caliber of verte bral basilar arterial system is redemonstrated. The dural venous sinuses appear patent. The visualize d sinuses are clear and the globes are intact. IMPRESSION: No suspicious enhancing masses to suggest metastatic disease to the brain. No significant change from prior MRI. [facility], , 03/15/2025 8:21 AM
== END | disposition home or self-care (01) ==
LOC: RADMRIMAIN 13:19
PROVIDERS: ATTEND Internal Medicine Hematology & Oncology
DX: C34.11 Malignant neoplasm of upper lobe, right bronchus or lung (principal); I10 Essential (primary) hypertension; N62 Hypertrophy of breast; M54.50 Low back pain, unspecified
CPT/HCPCS: 70553; A9585

== ENCOUNTER → 2025-03-16 | Outpatient (CLI) | payer MEDICARE ==
--- NOTE | 2025-03-17 09:27 | PE ---
EXAMINATION TYPE: PET CT fusion skull to thigh DATE OF EXAM: 03/16/2025 COMPARISON: Prior PET/CT October 27, 2024 and older studies HISTORY: Lung cancer bilateral diagnosed 2022 with chemotherapy and radiation treatment . TECHNIQUE: Following the intravenous administration of 9.82 mCi of F-18 FDG, whole body images are p erformed from the skull base to the midthigh. Images are reviewed on the computer in the coronal, ax ial, and sagittal planes. Reconstructed rotating images are created on independent workstation and r eviewed on the computer. A localization and attenuation correction CT is performed in conjunction w ith the PET scan. Blood glucose level equals 97. SCAN: Subsequent Scan FINDINGS: SKULL BASE AND NECK: No new areas of abnormal hypermetabolic uptake. CHEST, MEDIASTINUM, AND HILAR REGION: Persistent areas of nodular consolidation without abnormal hype rmetabolic uptake on current study. No abnormal hypermetabolic uptake in the mediastinum. No new area s of abnormal hypermetabolic uptake. ABDOMEN AND PELVIS: Normal excretion redemonstrated. No new areas of abnormal hypermetabolic uptake. OSSEOUS STRUCTURES: No areas of abnormal hypermetabolic uptake OTHER CT: Moderate to severe left carotid calcified plaque or possible stent. Correlate clinically. P rominent pulmonary arteries suggesting underlying pulmonary artery hypertension. Moderate Coronary ar zo calcification is redemonstrated. There is 2.3 cm thin-walled cyst left hepatic lobe axial image 124 redemonstrated. Additional thin-wa lled cysts are suspected. Scattered colonic diverticula are present. Postsurgical change to the mid t o lower lumbar spine is redemonstrated. Uterus is surgically absent. IMPRESSION: Continued complete positive treatment response. No new areas of abnormal hypermetabolic u ptake to suggest active neoplastic recurrence. [facility], , 03/17/2025 9:25 AM
== END | disposition home or self-care (01) ==
LOC: RADPETMAIN 11:00
PROVIDERS: ATTEND Internal Medicine Hematology & Oncology
DX: C34.11 Malignant neoplasm of upper lobe, right bronchus or lung (principal)
CPT/HCPCS: 78815; A9552